=== PATIENT | female | born 1985 | race Caucasian/White ===

== ENCOUNTER 2023-05-08 11:27 | Observation (INO) ==
[2023-05-08 12:12] LABS: Basophils # (auto) 0.04 K/uL (0.00-0.20); Eosinophils # (auto) 0.37 K/uL (0.00-0.50); Eosinophils % (auto) 8.9 %; Hemoglobin 12.3 g/dl (12.0-16.0); Immature Granulocytes # (auto) 0.02 K/uL (0.01-0.20); Immature Granulocytes % (auto) 0.5 %; Lymphocytes # (auto) 0.95 K/uL (1.20-3.40); Lymphocytes % (auto) 22.8 %; Mean Corpuscular Hemoglobin 23.1 pg (25.0-34.0); Mean Corpuscular Hgb Conc 30.8 g/dL (32.0-36.0); Mean Corpuscular Volume 75.2 fL (80.0-100.0); Mean Platelet Volume 10.1 fL (9.4-12.4); Monocytes # (auto) 0.31 K/uL (0.11-0.59); Monocytes % (auto) 7.4 %; Neutrophils # (auto) 2.48 K/uL (1.40-6.50); Neutrophils % (auto) 59.4 %; Platelet Count 237 K/uL (130-400); RDW Coefficient of Variation 14.6 % (11.5-14.5); RDW Standard Deviation 39.6 fL (36.4-46.3); Red Blood Count 5.32 M/uL (4.20-5.40); White Blood Count 4.17 K/ul (4.8-10.8)
--- NOTE | 2023-05-08 12:21 | XRay Report ---
XR chest 1V not portable CLINICAL HISTORY: Chest pain, nonspecific TECHNIQUE: Single frontal radiograph of the chest was obtained. Comparison: None available at the time of this dictation. FINDINGS: No lines and tubes are seen. Prominence of the right superior hilum is seen at the level of the right paratracheal stripe. The lungs are clear. No evidence of pleural effusion or pneumothorax. IMPRESSION: Prominence of the right superior hilum is nonspecific. If not previously evaluated, CT is recommended to exclude underlying mass. ACT 112: Positive. There are findings on this exam that require communication between the performing entity and the patient following Patient Test Result Information Act ([place] Act 112) guidelines. Electronically signed by: Kenyon Chen M.D. 05/08/2023 12:20 PM
[2023-05-08 12:26] LABS: Albumin Globulin Ratio 1.2 (0.9-2); Albumin Level 4.2 gm/dl (3.4-5.0); Bilirubin,Total 0.5 mg/dl (0.2-1.0); Calcium 12.3 mg/dl (8.6-10.3); Creatinine Clr Calc Pharmacy 56.2 ml/min; Est GFR (African American) 45.5 ml/min; Est GFR (Non-African American) 39.3 ml/min; Globulin 3.5 gm/dl (2.5-4.0); Potassium 3.8 mmol/L (3.5-5.1); Total Protein 7.7 gm/dl (6.0-8.3)
[2023-05-08 12:29] LABS: Troponin I High Sensitivity 5.2 pg/ml (0-14)
[2023-05-08 12:36] LABS: Partial Thromboplastin Ratio 1.1; Partial Thromboplastin Time 31 Seconds (21-31); Prothrombin Time 11.4 Seconds (9.0-12.0)
[2023-05-08] MEDS ORDERED: CEFEPIME 2,000 MG/20 ML VIAL IV STA (12:38)
--- NOTE | 2023-05-08 12:51 | Emergency Department Note ---
Impression & Plan SOB (shortness of breath), Hilar adenopathy, Pedal edema, Cellulitis, Hypercalcemia ED Provider Note NAME: EARL ARAUJO AGE: 38 SEX: F : 1985 ARRIVES VIA: Walk-In INFORMANT: [Patient] ED PROVIDER(S): [Keith Oliver MD] CHIEF COMPLAINT: Short of breath, leg edema HISTORY OF PRESENT ILLNESS: The patient is a 38-year-old female who has had shortness of breath increasing for the last several months. She feels most short of breath when she sits down or leans back or lays flat. She has noticed increasing edema for a few days of her lower extremities. There has been no fever, there has been some erythema noticed to the right lower extremity. There is an open spot across the dorsum of the right foot from her sandals rubbing. There has been no fever, no increased cough. The patient does have COPD and a fatty liver. She has no history of previous fluid overload. She is not on a diuretic PMHx/PSHx/Social Hx: See Below PHYSICAL EXAM: GENERAL: Patient is in no acute distress. HEENT: No acute trauma, normocephalic atraumatic, mucous membranes moist, no nasal congestion. NECK: No stridor, no adenopathy, no meningismus, trachea is midline. LUNGS: A few scattered crackles heard bilaterally, no respiratory distress, no wheezing. HEART: Without murmurs gallops or rubs, regular rate and rhythm. ABDOMEN: Soft, nontender, no peritonitis. EXTREMITIES: No cyanosis, full range of motion of all the joints without pain or difficulty. Patient has mild to moderate bilateral pedal edema with some erythema and warmth to the right lower extremity involving the ankle and distal leg. There is a bandage over the dorsal midfoot NEUROLOGIC: Oriented x 3, no acute motor or sensory deficits, no focal weakness. SKIN: No jaundice, no diaphoresis. DIFFERENTIAL DIAGNOSIS: Fluid overload, CHF, electrolyte imbalance, anemia, pneumonia or bronchitis, DVT or PE, cellulitis, among others. EMERGENCY DEPARTMENT PROCEDURES: MEDICAL DECISION MAKING: There is no leukocytosis or concerning anemia. There is a normal platelet count. No coagulopathy. There is evidence for some acute kidney injury with a creatinine of 1.63. Calcium is critically high at 12.3. Lactic acid level is not elevated making severe sepsis less likely. No concerning liver enzyme elevation. BNP is at not elevated making CHF unlikely. ECG shows a normal sinus rhythm, no ischemia. Cardiac enzyme testing x 1 is not consistent with acute cardiac injury. Patient appeared to be in a euthyroid state. Chest x-ray shows some potential mild CHF and some hilar adenopathy. No focal infiltrate. Chest CT does not show PE, hilar adenopathy was seen. Bilateral lower extremity ultrasound does not show findings of DVT. Respiratory bio fire was negative. On exam, the patient had pedal edema. She did have findings of a right lower extremity cellulitis. The patient received IV cefepime as antibiotic coverage. She was given a 20 mg dose of IV Lasix to help with the edema. The patient presents with shortness of breath. The shortness of breath has worsened over the last few months. She now has pedal edema and what appears to be a right lower extremity cellulitis. She has findings of some acute kidney injury and hypercalcemia. Hospitalization is indicated. I spoke with the patient and case management, the on-call hospitalist was consulted. Prior/Outside records/notes reviewed: ECG per my interpretation: Indication was shortness of breath. The ECG shows a normal sinus rhythm with a rate of 78. There is some nonspecific ST changes diffusely. There is no ST elevation, no PVCs. The QTc is 442. Continuous Cardiac Monitoring per my interpretation: An order was placed for continuous cardiac monitoring. The monitor shows a rate of 74 with normal sinus rhythm. Imaging/x-ray results per my interpretation: Chest x-ray shows some fullness of the right hilum. There appears to be some very mild CHF, no pneumonia. Chronic Medical/Social conditions affecting care: COPD. Care/Management discussed with: Case management, the on-call hospitalist. Level of care consideration(s): After review of the information above and other included data: --I believe the patient requires escalation of care to admission DISPOSITION: Admission with pulmonary consult. Past Med/Surg History Medical History Hypothyroidism Social History Smoking Status: Former smoker Feels Safe at Home: Yes Allergies Allergies Allergy/AdvReac Type Severity Reaction Status Date / Time morphine Allergy Unknown SEVERE Unverified 05/08/23 16:18 MIGRANES & VOMITING escitalopram [From Lexapro] Allergy severe Verified 05/08/23 16:19 migraine and vomiting Home Meds Home Medications Medication Instructions Recorded Confirmed adalimumab 40 mg/0.4 mL 40 mg subcut .EVERY 2 WEEKS 05/08/23 05/08/23 subcutaneous pen kit (Humira(CF) Pen) buprenorphine 100 mg/0.5 mL 100 mg subcut MONTHLY 05/08/23 05/08/23 solution,exten.rel.subcutaneous syringe (Sublocade) bupropion HCl 75 mg tablet 75 mg PO QAM 05/08/23 05/08/23 cholecalciferol (vitamin D3) 50 4,000 unit PO QAM 05/08/23 05/08/23 mcg (2,000 unit) capsule famotidine 40 mg tablet 40 mg PO QAM 05/08/23 05/08/23 fluoxetine 20 mg capsule 20 mg PO QAM 05/08/23 05/08/23 fluticasone fur. 100 mcg-umeclid 1 ea inhalation QAM 05/08/23 05/08/23 62.5 mcg-vilant 25 mcg inhalat.powder (Trelegy Ellipta) gabapentin 600 mg tablet 600 mg PO TID 05/08/23 05/08/23 hydroxyzine HCl 50 mg tablet See Rx Instructions .Route .COMPLEX 05/08/23 05/08/23 lactulose 10 gram/15 mL oral 30 ml PO Q OTHER DAY 05/08/23 05/08/23 solution montelukast 10 mg tablet 10 mg PO HS 05/08/23 05/08/23 paliperidone palmitate 234 mg/1.5 234 mg IM MONTHLY 05/08/23 05/08/23 mL intramuscular syringe (Invega Sustenna) rizatriptan 10 mg tablet 10 mg PO UD 05/08/23 05/08/23 Results & Data (ED) Vital Signs Vital Signs - 24 hr 05/08/23 11:35 05/08/23 12:20 05/08/23 13:08 Temperature 37 C Temperature Source Temporal Artery Scan Pulse Rate 78 68 Pulse Rate [Apical] Respiratory Rate 20 Respiratory Effort / Characteristics Non-Labored Spontaneous Respiratory Depth Normal Respiratory Pattern Regular Blood Pressure 136/79 Blood Pressure [Right Arm] Blood Pressure Mean 98 Blood Pressure Mean [Right Arm] Blood Pressure Position [Right Arm] Pulse Oximetry 94 Oxygen Delivery Method Room Air Room Air Sepsis Recent Fever Within 48 Hours No Sepsis New/Unexplained Change in Mental Status No Sepsis Action Taken by Nursing No Action Required 05/08/23 13:34 05/08/23 15:53 05/08/23 16:16 Temperature Temperature Source Pulse Rate Pulse Rate [Apical] 72 67 66 Respiratory Rate 21 16 17 Respiratory Effort / Characteristics Non-Labored Spontaneous Respiratory Depth Normal Normal Respiratory Pattern Regular Blood Pressure Blood Pressure [Right Arm] 160/83 H 117/81 127/87 Blood Pressure Mean Blood Pressure Mean [Right Arm] 108 93 100 Blood Pressure Position [Right Arm] Sitting Lying Pulse Oximetry 98 94 97 Oxygen Delivery Method Room Air Room Air Room Air Sepsis Recent Fever Within 48 Hours Sepsis New/Unexplained Change in Mental Status Sepsis Action Taken by [facility] Medications Current Medication List: was personally reviewed by me Laboratory Data Attestation: I reviewed the patient's lab results. 05/08/23 11:38 05/08/23 11:38 Lab Results 05/08/23 05/08/23 Range/Units 11:38 12:50 WBC 4.17 L (4.8-10.8) K/ul RBC 5.32 (4.20-5.40) M/uL Hgb 12.3 (12.0-16.0) g/dl Hct 40.0 (37.0-47.0) % MCV 75.2 L (80.0-100.0) fL MCH 23.1 L (25.0-34.0) pg MCHC 30.8 L (32.0-36.0) g/dL RDW Std Deviation 39.6 (36.4-46.3) fL RDW Coeff of Shelley 14.6 H (11.5-14.5) % Plt Count 237 (130-400) K/uL MPV 10.1 (9.4-12.4) fL Immature Gran % (Auto) 0.5 % Neut % (Auto) 59.4 % Lymph % (Auto) 22.8 % Bremer % (Auto) 7.4 % Eos % (Auto) 8.9 % Baso % (Auto) 1.0 % Neut # (Auto) 2.48 (1.40-6.50) K/uL Lymph # (Auto) 0.95 L (1.20-3.40) K/uL Bremer # (Auto) 0.31 (0.11-0.59) K/uL Eos # (Auto) 0.37 (0.00-0.50) K/uL Baso # (Auto) 0.04 (0.00-0.20) K/uL Immature Gran # (Auto) 0.02 (0.01-0.20) K/uL PT 11.4 (9.0-12.0) Seconds INR 1.0 (0.9-1.1) APTT 31 (21-31) Seconds PTT Ratio 1.1 Sodium 135 L (136-145) mmol/L Potassium 3.8 (3.5-5.1) mmol/L Chloride 101 (98-107) mmol/L Carbon Dioxide 27 (21-32) mmol/L Anion Gap 7 (3-11) BUN 18 (6-23) mg/dl Creatinine 1.63 H (0.6-1.2) mg/dl Est Cr Clr Drug Dosing 56.2 ml/min Est GFR ( Amer) 45.5 ml/min Est GFR (Non-Af Amer) 39.3 ml/min BUN/Creatinine Ratio 11.0 (10-20) Glucose 108 H (70-99(Fasting)) mg/dl Lactate 1.5 (0.4-2.0) mmol/L Calcium 12.3 H* (8.6-10.3) mg/dl Magnesium 2.1 (1.7-2.4) mg/dl Total Bilirubin 0.5 (0.2-1.0) mg/dl AST 31 (13-39) U/L ALT 30 (7-52) U/L Alkaline Phosphatase 155 H (34-104) U/L Troponin I High Sens 5.2 (0-14) pg/ml B-Natriuretic Peptide 55 (0-100) pg/ml Total Protein 7.7 (6.0-8.3) gm/dl Albumin 4.2 (3.4-5.0) gm/dl Globulin 3.5 (2.5-4.0) gm/dl Albumin/Globulin Ratio 1.2 (0.9-2) TSH 2.683 (0.300-4.500) uIu/ml SARS-CoV-2 (PCR) NEGATIVE (Negative) Influenza Type A (PCR) Negative (Neg) Influenza Type B (PCR) Negative (Neg) RSV (RT-PCR) Negative (Neg) Administered Medications Discontinued Medications Furosemide (Furosemide Inj 20 Mg/2 Ml Vial) 20 mg IV ONE ONE Stop: 05/08/23 16:06 Last Admin: 05/08/23 16:15 Dose: 20 mg Documented By: EULALIO Cefepime HCl (Maxipime) 2,000 mg in 20 mls @ 5 mls/min IV NOW STA; Protocol Stop: 05/08/23 12:41 Last Admin: 05/08/23 13:31 Dose: 5 mls/min Documented By: KEITH Ioversol (Optiray 320 125ml) 115 ml IV ONCE ONE Stop: 05/08/23 13:32 Last Admin: 05/08/23 13:31 Dose: 115 ml Documented By: DO Imaging Data Radiologist's Impression: Chest X-Ray 05/08/23 11:37 XR chest 1V not portable CLINICAL HISTORY: Chest pain, nonspecific TECHNIQUE: Single frontal radiograph of the chest was obtained. Comparison: None available at the time of this dictation. FINDINGS: No lines and tubes are seen. Prominence of the right superior hilum is seen at the level of the right paratracheal stripe. The lungs are clear. No evidence of pleural effusion or pneumothorax. IMPRESSION: Prominence of the right superior hilum is nonspecific. If not previously evaluated, CT is recommended to exclude underlying mass. ACT 112: Positive. There are findings on this exam that require communication between the performing entity and the patient following Patient Test Result Information Act ([place] Act 112) guidelines. Electronically signed by: Kenyon Chen M.D. 05/08/2023 12:20 PM Chest CTA 05/08/23 12:31 CT angio chest PE protocol CLINICAL HISTORY: PE, please also eval ? right hilar mass TECHNIQUE: Multidetector row helical CT of the chest was performed with angiographic protocol. Coronal and sagittal reformations were obtained. Coronal and sagittal MIPS were obtained from the axial data set and were submitted for review. Automated dose lowering techniques and/or adjustment according to patient size were utilized for this exam. CT DOSE: 890.56 mGy.cm Comparison: Comparison is made to chest radiograph 05/08/2023 FINDINGS: Lungs and pleura: Extensive nodularity is seen throughout the lungs and there is atelectasis and peripheral thickening in the lower lungs. Heart and pericardium: Heart size is normal. No pericardial effusion. Vessels: No evidence of pulmonary embolism. Mediastinum and elizabeth: Enlarged mediastinal lymph nodes measure up to 31 mm in the right lower paratracheal station. Bilateral hilar lymph nodes are seen. Chest wall and lower neck: Unremarkable. Abdomen: Prominent elpidio hepatis lymph nodes measure up to 18 mm in diameter and there are prominent gastrohepatic and retroperitoneal nodes are seen. Bones: Mild degenerative changes are seen. IMPRESSION: No evidence of pulmonary embolus. Extensive pulmonary nodularity may reflect infectious/inflammatory process. There is extensive mediastinal and hilar lymphadenopathy, likely reactive, explaining the abnormal contour on prior chest x-ray. Follow-up to resolution is recommended. ACT 112: Negative or not required by law. Electronically signed by: Kenyon Chen M.D. 05/08/2023 2:03 PM Venous Doppler Study 05/08/23 12:38 US venous doppler LE BI CLINICAL HISTORY: swelling TECHNIQUE: Bilateral lower extremity real-time compression venous ultrasound with Color Doppler imaging. Utilizing real-time ultrasonic imaging multiple real time high-resolution ultrasonic images with compression and noncompression maneuvers of the deep venous system in addition to color doppler imaging were performed from the common femoral vein through the proximal calf veins. COMPARISON: None available at the time of this dictation. FINDINGS/IMPRESSION: Currently there is normal compressibility of the deep venous system from the common femoral vein through the proximal calf veins. No superficial venous thrombosis is identified. ACT 112: Negative or not required by law. Electronically signed by: Kenyon Chen M.D. 05/08/2023 3:45 PM Discharge Plan Visit Data Chief Complaint: Swelling/Edema to Extremity Stated Complaint: LEG SWELLING, CHEST PAIN, SOB ED Provider: Keith Oliver Discharge Problem: SOB (shortness of breath), Hilar adenopathy, Pedal edema, Cellulitis, Hypercalcemia Patient Disposition: Admitted As Inpatient Condition: Fair Forms Stand Alone Forms: [facility] Prescriptions Prescriptions: No Action famotidine 40 mg tablet 40 mg PO QAM Trelegy Ellipta 100-62.5-25 mcg blister with device 1 ea INHALATION QAM gabapentin 600 mg tablet 600 mg PO TID Sublocade 100 mg/0.5 mL solution, extended rel syringe 100 mg SUBCUT MONTHLY Invega Sustenna 234 mg/1.5 mL syringe 234 mg IM MONTHLY rizatriptan 10 mg tablet 10 mg PO UD Rx Instructions: 1 tab 1 time may repeat after 2 hours if headache persists...max of 3 tab/day as needed bupropion HCl 75 mg tablet 75 mg PO QAM fluoxetine 20 mg capsule 20 mg PO QAM lactulose 10 gram/15 mL solution 30 ml PO Q OTHER DAY hydroxyzine HCl 50 mg tablet See Rx Instructions .ROUTE .COMPLEX Rx Instructions: take 1 tablet by mouth every morning and 1.5 tablets twice daily in the afternoon Humira(CF) Pen 40 mg/0.4 mL pen injector kit 40 mg SUBCUT .EVERY 2 WEEKS montelukast 10 mg tablet 10 mg PO HS cholecalciferol (vitamin D3) 50 mcg (2,000 unit) capsule 4,000 unit PO QAM Referrals Referrals: Tao Rae [Primary Care Provider] - Discharge Problem: Cellulitis Qualifiers: Site of cellulitis: extremity Site of cellulitis of extremity: lower extremity Laterality: right Qualified Code(s): L03.115 - Cellulitis of right lower limb
[2023-05-08 12:53] LABS: Magnesium 2.1 mg/dl (1.7-2.4)
[2023-05-08 12:55] LABS: Influenza A virus by PCR Negative (Neg); Influenza B virus by PCR Negative (Neg); RSV by PCR Negative (Neg); SARS CoV2 RNA(COVID-19) Ceph NEGATIVE (Negative)
[2023-05-08 13:11] LABS: Thyroid Stimulating Hormone 2.683 uIu/ml (0.300-4.500)
[2023-05-08] MEDS ORDERED: OPTIRAY 320 125ml IV ONE (13:31)
--- NOTE | 2023-05-08 14:04 | CT Scan Report ---
CT angio chest PE protocol CLINICAL HISTORY: PE, please also eval ? right hilar mass TECHNIQUE: Multidetector row helical CT of the chest was performed with angiographic protocol. Carranza l and sagittal reformations were obtained. Coronal and sagittal MIPS were obtained from the axial ras a set and were submitted for review. Automated dose lowering techniques and/or adjustment according to patient size were utilized for this exam. CT DOSE: 890.56 mGy.cm Comparison: Comparison is made to chest radiograph 05/08/2023 FINDINGS: Lungs and pleura: Extensive nodularity is seen throughout the lungs and there is atelectasis and tata pheral thickening in the lower lungs. Heart and pericardium: Heart size is normal. No pericardial effusion. Vessels: No evidence of pulmonary embolism. Mediastinum and elizabeth: Enlarged mediastinal lymph nodes measure up to 31 mm in the right lower paratra cheal station. Bilateral hilar lymph nodes are seen. Chest wall and lower neck: Unremarkable. Abdomen: Prominent elpidio hepatis lymph nodes measure up to 18 mm in diameter and there are prominent gastrohepatic and retroperitoneal nodes are seen. Bones: Mild degenerative changes are seen. IMPRESSION: No evidence of pulmonary embolus. Extensive pulmonary nodularity may reflect infectious/inflammatory process. There is extensive mediastinal and hilar lymphadenopathy, likely reactive, explaining the ab normal contour on prior chest x-ray. Follow-up to resolution is recommended. ACT 112: Negative or not required by law. Electronically signed by: Kenyon Chen M.D. 05/08/2023 2:03 PM
--- NOTE | 2023-05-08 15:47 | Ultrasound Report ---
US venous doppler LE BI CLINICAL HISTORY: swelling TECHNIQUE: Bilateral lower extremity real-time compression venous ultrasound with Color Doppler imagi ng. Utilizing real-time ultrasonic imaging multiple real time high-resolution ultrasonic images with compression and noncompression maneuvers of the deep venous system in addition to color doppler imagi ng were performed from the common femoral vein through the proximal calf veins. COMPARISON: None available at the time of this dictation. FINDINGS/IMPRESSION: Currently there is normal compressibility of the deep venous system from the common femoral vein thro ugh the proximal calf veins. No superficial venous thrombosis is identified. ACT 112: Negative or not required by law. Electronically signed by: Kenyon Chen M.D. 05/08/2023 3:45 PM
[2023-05-08] MEDS ORDERED: FUROSEMIDE INJ 20 MG/2 ML VIAL IV ONE (16:05)
--- OUTSIDE RECORDS SUMMARY | 2023-05-08 16:33 | External Medical Summary | Summary of Care ---
Author Name Unknown Organization [facility] Address [address] [place] [address] Phone [phone] Care Team Providers Care Level Vial Grinder Name Role Phone Mendel Fortune MD Primary Care Provider [phone] Encounter Details Date Type Department Care Team Description 11/20/2022 Orders Only Outcomes Research Department [address] [place] [address] Zainab Jc [facility] Other*[id number] Allergies Active Allergy Reactions Severity Noted Date Comments Morphine High 03/08/2016 Vomiting, migraines documented as of this encounter (statuses as of 11/20/2022) Medications Medication Sig Dispensed Refills Start Date End Date Status VITAMIN D3 1000 UNITS PO CAPS One daily 0 Active MONTELUKAST SODIUM 10 MG PO TABS One daily 0 Active MULTI-VITAMIN DAILY PO TABS one pill each day 0 Active ALBUTEROL SULFATE HFA 108 (90 BASE) MCG/ACT IN AERS as directed 0 Active KLONOPIN 1 MG PO TABS one tablet three times daily 0 Active VITAMIN C 100 MG PO TABS one tablet daily 0 Active IRON 325 (65 FE) MG PO TABS one tablet daily 0 Active atoMOXetine (STRATTERA) 60 MG Capsule Take 60 mg by mouth daily. 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 documented as of this encounter (statuses as of 11/20/2022) Social History Tobacco Use Types Packs/Day Years Used Date Smoking Tobacco: Every Day Cigarettes 0.3 Smokeless Tobacco: Never Alcohol Use Standard Drinks/Week Comments No 0 (1 standard drink = 0.6 oz pur e alcohol) 01/26/14 no ETOH >1 year Sex Assigned at Date Recorded Not on file documented as of this encounter Plan of Treatment Scheduled Orders Name Type Priority Associated Diagnoses Orde r Schedule MYCODE INITIAL ADULT Lab Routine MyCode Research Other*[id number] Expected: 11/20/2022 (Approximate), Expires: 12/10/2023 Health Maintenance Due Date Last Done Comments Hepatitis B (1 of 3 - 3-dose series) 1985 COVID-19 Vaccine (#1) 1985 Pneumococcal Vaccine: Pediat rics (0 to 5 Years) and At-Risk Patients (6 to 64 Years) (1 - PCV) 1990 Depression Screening, Annual for Pts 12 and Over 1996 HIV Screening 1999 Hepatitis C Screening 2002 DTaP,Tdap,and Td Vaccines (1 - Tdap) 2003 Pap Smear 2014 Influenza Vaccine (FLU shot) (Season Ended) 2023 GARDASIL-HPV IMMUNIZATION SERIES Aged Out No longer eligible based on patient's age to complete this topic MENINGOCOCCAL (MENACTRA/MENVEO) Aged Out No longer eligible based on patient's age to complete this topic documented as of this encounter Medical Devices Not on filedocumented as of this encounter Visit Diagnoses Diagnosis MyCode Research Other*[id number] documented in this encounter Care Teams Level Vial Grinder Relationship Specialty Start Date End Date Mendel Fortune MD PCP - General Internal Medicine 03/08/16 documented as of this encounter
[2023-05-08 16:59] LABS: C Reactive Protein 2.24 mg/dl (0-0.5); Phosphorus 3.4 mg/dl (2.5-4.9)
[2023-05-08 17:07] LABS: Ferritin 33.5 ng/ml (8-388)
--- NOTE | 2023-05-08 18:41 | History & Physical Report ---
Date of Service May 08, 2023 Assessment & Plan (1) Hypercalcemia: Plan: Suspected due to sarcoidosis. Treatment will be effectively steroids however given she is relatively asymptomatic with a mildly elevated ionized calcium steroids deferred on admission prior to obtaining tissue biopsy. Lasix given for pedal edema which may mildly help overnight. Suspect that this is affecting her constipation and possibly her underlying psychiatric illnesses. No paresthesias. Repeat ionized calcium level in a.m. (2) Sarcoidosis: Plan: Presumed diagnosis with hilar adenopathy, hypercalcemia and shortness of breath Gold standard test would be a tissue diagnosis as discussed with Dr Luz and will keep her NPO after midnight for possible bronchoscopy tomorrow N.p.o. after midnight Consult pulmonology (3) Pedal edema: Plan: ?Right-sided heart failure due to sarcoidosis ?Venous stasis Appears to already be improving with of Lasix and leg elevation Continue Lasix 20 mg IV daily TTE (4) Schizoaffective disorder: Plan: On Invega monthly injections - next dose due May 25 (5) Bipolar disorder: Plan: Continue bupropion, gabapentin, fluoxetine, Invega Plan VTE Prophylaxis - low risk Diet - low Na, NPO after midnight Disposition - admit to med/tele Admission and Anticipated Discharge Date Admission Date: May 08, 2023 History of Present Illness Chief Complaint: Shortness of breath, leg swelling Primary Care Provider: Tao Rae Arely Landin is a 38-year-old female who presents to the ER with shortness of breath and leg swelling. She reports progressive shortness of breath especially over the last 6 months for which she has been seeing pulmonology in [place]. She has had a diagnosis of COPD for the last 2 to 3 years diagnosed on lung function testing. She has had no hospitalizations for this. She notes that her inhalers are not helping with her shortness of breath. She also notes intermittent pounding of her heart's where she feels her heart goes slowly. The last time this happened was about a week ago. She notes 2 days of leg swelling. Associated symptoms significant for orthopnea, paroxysmal nocturnal dyspnea. No presyncope, syncope, claudication, palpitations. She denies any fevers, chills, cough, sinus pain, earache. She has a significant history of ankylosing spondylitis for which she is receiving Humira. She receives Humira every 2 weeks but notes her last dose was about a month ago due to difficulty obtaining it from the pharmacy. She has a significant history of opiate abuse from the age [age]. No prior IV drug use. She remains on monthly injections of buprenorphine (Sublocade). Allergies Allergy/AdvReac Type Severity Reaction Status Date / Time morphine Allergy Unknown SEVERE Unverified 05/08/23 16:18 MIGRANES & VOMITING escitalopram [From Lexapro] Allergy severe Verified 05/08/23 16:19 migraine and vomiting Home Medications Medication Instructions Recorded Confirmed Type adalimumab 40 mg/0.4 mL 40 mg subcut .EVERY 2 WEEKS 05/08/23 05/08/23 History subcutaneous pen kit (Humira(CF) Pen) buprenorphine 100 mg/0.5 mL 100 mg subcut MONTHLY 05/08/23 05/08/23 History solution,exten.rel.subcutaneous syringe (Sublocade) bupropion HCl 75 mg tablet 75 mg PO QAM 05/08/23 05/08/23 History cholecalciferol (vitamin D3) 50 4,000 unit PO QAM 05/08/23 05/08/23 History mcg (2,000 unit) capsule famotidine 40 mg tablet 40 mg PO QAM 05/08/23 05/08/23 History fluoxetine 20 mg capsule 20 mg PO QAM 05/08/23 05/08/23 History fluticasone fur. 100 mcg-umeclid 1 ea inhalation QAM 05/08/23 05/08/23 History 62.5 mcg-vilant 25 mcg inhalat.powder (Trelegy Ellipta) gabapentin 600 mg tablet 600 mg PO TID 05/08/23 05/08/23 History hydroxyzine HCl 50 mg tablet See Rx Instructions .Route .COMPLEX 05/08/23 05/08/23 History lactulose 10 gram/15 mL oral 30 ml PO Q OTHER DAY 05/08/23 05/08/23 History solution montelukast 10 mg tablet 10 mg PO HS 05/08/23 05/08/23 History paliperidone palmitate 234 mg/1.5 234 mg IM MONTHLY 05/08/23 05/08/23 History mL intramuscular syringe (Invega Sustenna) rizatriptan 10 mg tablet 10 mg PO UD 05/08/23 05/08/23 History Past Med/Surg History Medical History (Updated 05/08/23 @ 22:34 by Oskar Guillaume MD) Bipolar disorder Schizoaffective disorder Hypothyroidism Social History Smoking Status: Former smoker Tobacco Type: Cigarettes and E-cigarettes / Vaping Cigarettes Per Day: smoked for years but quit, vaped for years but quit 2-3 years ago; Do You Dip or Chew Tobacco: No; Hx Alcohol Use: No 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, Sublocade now) Preferred Language: Gambian Communication Ability: Effective Tobacco Sweeper Required: No Beliefs That Will Affect Care: None Current Living Situation: Other Current Living Situation Comment: lives with 3 kids age 12-20 Other Information That Helps Us Care for You: Yes (Mom helps pt and drives her to appointments) Feels Safe at Home: Yes Safety Concerns: Feels Safe At This Time Assistive Devices: CPAP and Denture - Upper Review of Systems 2 Review of Systems: All systems reviewed & are unremarkable except as noted in HPI & below Physical Exam 2 Physical Exam: Constitutional: well developed; + not well nourished and no acute distress Eyes: + anicteric sclerae; normal pupil size ENMT: external ear and nose normal, oropharynx normal Respiratory: normal respiratory effort, lungs clear to auscultation Cardiovascular: RRR, no murmur, no edema Gastrointestinal (Abdomen): normal bowel sounds, soft, nontender, no hepatosplenomegaly Skin: + erythema (mild diffuse rash on bilater al legs already significantly improved as above) Neurologic: moves all extremities and awake; not confused Psychiatric: A+Ox3, euthymic affect Results & Data Results & Data Vital Signs (Past 12 Hours) Vital Signs Temp Pulse Pulse Resp BP BP Pulse Ox 05/08/23 18:12 74 16 136/81 92 05/08/23 17:08 68 05/08/23 16:16 66 17 127/87 97 05/08/23 15:53 67 16 117/81 94 05/08/23 13:34 72 21 160/83 H 98 05/08/23 13:08 68 05/08/23 12:20 05/08/23 11:35 37 C 78 20 136/79 94 O2 Del Method 05/08/23 18:12 Room Air 05/08/23 17:08 05/08/23 16:16 Room Air 05/08/23 15:53 Room Air 05/08/23 13:34 Room Air 05/08/23 13:08 05/08/23 12:20 Room Air 05/08/23 11:35 Room Air Laboratory Results Abnormal lab results 05/08/23 05/08/23 Range/Units 11:38 17:03 WBC 4.17 L (4.8-10.8) K/ul MCV 75.2 L (80.0-100.0) fL MCH 23.1 L (25.0-34.0) pg MCHC 30.8 L (32.0-36.0) g/dL RDW Coeff of Shelley 14.6 H (11.5-14.5) % Lymph # (Auto) 0.95 L (1.20-3.40) K/uL ESR 58 H (0-20) mm/hr Sodium 135 L (136-145) mmol/L Creatinine 1.63 H (0.6-1.2) mg/dl Glucose 108 H (70-99(Fasting)) mg/dl Calcium 12.3 H* (8.6-10.3) mg/dl Ionized Calcium 1.57 H (1.12-1.32) mmol/L Transferrin % Sat 13 L (15-50) % Alkaline Phosphatase 155 H (34-104) U/L C-Reactive Protein 2.24 H (0-0.5) mg/dl 25-OH Vitamin D Total 23.4 L (30-100) ng/ml PTH Intact 2.2 L (12.0-88.0) pg/ml Diagnostic Findings XR chest 1V not portable CLINICAL HISTORY: Chest pain, nonspecific TECHNIQUE: Single frontal radiograph of the chest was obtained. Comparison: None available at the time of this dictation. FINDINGS: No lines and tubes are seen. Prominence of the right superior hilum is seen at the level of the right paratracheal stripe. The lungs are clear. No evidence of pleural effusion or pneumothorax. IMPRESSION: Prominence of the right superior hilum is nonspecific. If not previously evaluated, CT is recommended to exclude underlying mass. CT angio chest PE protocol CLINICAL HISTORY: PE, please also eval ? right hilar mass TECHNIQUE: Multidetector row helical CT of the chest was performed with angiographic protocol. Coronal and sagittal reformations were obtained. Coronal and sagittal MIPS were obtained from the axial data set and were submitted for review. Automated dose lowering techniques and/or adjustment according to patient size were utilized for this exam. CT DOSE: 890.56 mGy.cm Comparison: Comparison is made to chest radiograph 05/08/2023 FINDINGS: Lungs and pleura: Extensive nodularity is seen throughout the lungs and there is atelectasis and peripheral thickening in the lower lungs. Heart and pericardium: Heart size is normal. No pericardial effusion. Vessels: No evidence of pulmonary embolism. Mediastinum and elizabeth: Enlarged mediastinal lymph nodes measure up to 31 mm in the right lower paratracheal station. Bilateral hilar lymph nodes are seen. Chest wall and lower neck: Unremarkable. Abdomen: Prominent elpidio hepatis lymph nodes measure up to 18 mm in diameter and there are prominent gastrohepatic and retroperitoneal nodes are seen. Bones: Mild degenerative changes are seen. IMPRESSION: No evidence of pulmonary embolus. Extensive pulmonary nodularity may reflect infectious/inflammatory process. There is extensive mediastinal and hilar lymphadenopathy, likely reactive, explaining the abnormal contour on prior chest x-ray. Follow-up to resolution is recommended. US venous doppler LE BI CLINICAL HISTORY: swelling TECHNIQUE: Bilateral lower extremity real-time compression venous ultrasound with Color Doppler imaging. Utilizing real-time ultrasonic imaging multiple real time high-resolution ultrasonic images with compression and noncompression maneuvers of the deep venous system in addition to color doppler imaging were performed from the common femoral vein through the proximal calf veins. COMPARISON: None available at the time of this dictation. FINDINGS/IMPRESSION: Currently there is normal compressibility of the deep venous system from the common femoral vein through the proximal calf veins. No superficial venous thrombosis is identified. Medications Administered ER Medications Given: Cefepime 2000mg IV Furosemide 20mg IV ECG Rate (beats per minute): 78 Rhythm: normal sinus Findings: + nonspecific-ST abn Comparison ECG Date: no prior available Code Status & VTE Plan Code Status Full VTE Prophylaxis Plan VTE Prophylaxis will be ordered: No PG Care Time/CCT Total # of Minutes Spent Total Time Spent with Patient: Total time spent is greater than 50% in coordination of care (as documented) at patient's floor/unit and/or counseling patient: Coding Level of Care Code 72540 INT INP/OBS CARE 3/75MIN Diagnoses Hypercalcemia E83.52 Sarcoidosis D86.9 Pedal edema R60.0 Schizoaffective disorder F25.9 Bipolar disorder F31.9
[2023-05-08] MEDS: GABAPENTIN 600 MG TAB PO SCH (22:37)
[2023-05-08] MEDS: MONTELUKAST SODIUM 10 MG TABLET PO SCH (22:38)
[2023-05-08 22:59] LABS: Appearance Urine Clear (Clear); Bacteria Urine Automated Negative (Negative); Bilirubin Urine Negative (Negative); Blood Urine Negative (Negative); Color Urine Yellow; Epithelial Cell Urine Auto >30 /lpf (0-5); Glucose Urine UA Negative (Negative); Ketones Urine Trace (Negative); Leukocyte Esterase Urine 1+ (Negative); Nitrite Urine Negative (Negative); Protein Urine 1+ (Negative); Specific Gravity Urine > 1.045 (1.000-1.030); Urobilinogen Urine Negative (Negative); WBC Urine Automated >30 /hpf (0-5)
[2023-05-08] MEDS ORDERED: IBUPROFEN 200 MG TAB PO STA (23:31)
--- NOTE | 2023-05-08 23:36 | Electrocardiogram Report ---
Test Reason : Blood Pressure : / mmHG Vent. Rate : 078 BPM Atrial Rate : 078 BPM P-R Int : 154 ms QRS Dur : 072 ms QT Int : 388 ms P-R-T Axes : 063 020 031 degrees QTc Int : 442 ms Normal sinus rhythm Nonspecific ST and T wave abnormality Abnormal ECG No previous ECGs available Confirmed by Sascha Rodriges ([id number]) on 05/08/2023 11:35:48 PM Referred By: REFERRED SELF Confirmed By:Sascha Rodriges
[2023-05-08] MEDS: hydrOXYzine HCl 25 MG TAB PO SCH (23:48)
[2023-05-09 00:29] LABS: Calcium Oxalate Crystals Urine Present (None Prsent)
[2023-05-09 00:30] LABS: Cast Urine Automated >30 /lpf (0-5); Renal Epithelial Cells Urine 0-5 /lpf (0-5)
[2023-05-09 00:49] LABS: Total Protein Urine Random 52.7 mg/dl (0-11.9)
[2023-05-09 00:54] LABS: Creatinine Urine Random 146.7 mg/dl; Protein Creatinine Ratio Urine 0.4 (0-0.2)
[2023-05-09] MEDS: hydrOXYzine HCl 25 MG TAB PO SCH ×3 (08:13→20:51)
--- NOTE | 2023-05-09 08:13 | Pulmonary Consultation ---
Date of Consultation May 09, 2023 Assessment & Plan (1) Hilar adenopathy: (2) SOB (shortness of breath): (3) Hypercalcemia: Plan The patient's constellation of symptoms including hypercalcemia, shortness of breath and abnormal CT chest are very concerning for systemic sarcoidosis. Patient is agreeable to pursuing an EBUS/bronchoscopy today. I went over the risks and benefits (including, but not limited to pulmonary hemorrhage, pneumothorax, respiratory failure, mediastinitis and failure to wean off the vent) with the patient and she agrees. I am also consulting nephrology to assist with management of her hypercalcemia which is likely mediated by sarcoidosis. We did go over other possible etiologies for hypercalcemia and lymphadenopathy on her CT chest including malignancy, lymphoma and other granulomatous disorders. If granulomas are seen on biopsy, would like to start the patient on prednisone therapy and taper over several weeks to see clinical response. Patient will need outpatient PFTs and follow-up imaging. She will also need likely follow-up with nephrology to evaluate for nephrocalcinosis and further monitor her hypercalcemia. EKG completed with normal sinus rhythm noted. No significant heart block seen or conduction delays. Echocardiogram results pending. History of Present Illness Reason for Consultation: Shortness of breath and an abnormal CT chest Attending Physician: Reilly Birch DO History of Present Illness 38-year-old female with reported past medical history of COPD, bipolar disorder, schizoaffective disorder, ankylosing spondylitis on Humira and prior opiate drug abuse. Patient notes that she has been following with pulmonary medicine at [facility] for the past 3 to 4 years. She is on Trelegy and as needed albuterol. She notes that she was a smoker since her teenage years and quit about 2 years ago. She also has a history of vaping. She notes lately she has been having some increased shortness of breath with occasional cough. She denies ever having a chest x-ray or CT scan of her chest. She is unaware of her diagnosis of sarcoidosis. She denies any prior history of biopsies or lung procedures. She is currently unemployed. She denies overt occupational exposure history. Initially she notes intermittent palpitations. She is also on Humira for history of ankylosing spondylitis. Chest CTA completed yesterday personally reviewed reveals bilateral hilar lymphadenopathy and enlarged mediastinal lymph nodes. There are also miliary pulmonary nodules noted bilaterally in a perilymphatic distribution. Findings and concerning for underlying sarcoidosis. I reviewed the radiology report and agree. Labs were also significant for an elevated ESR 58, lymphopenia of 950 and an elevated ionized calcium of 1.57. COVID-19 testing, RSV and flu testing on admission were negative. Allergies Allergy/AdvReac Type Severity Reaction Status Date / Time morphine Allergy Unknown SEVERE Unverified 05/08/23 16:18 MIGRANES & VOMITING escitalopram [From Lexapro] Allergy severe Verified 05/08/23 16:19 migraine and vomiting Home Medications Medication Instructions Recorded Confirmed Type adalimumab 40 mg/0.4 mL 40 mg subcut .EVERY 2 WEEKS 05/08/23 05/08/23 History subcutaneous pen kit (Humira(CF) Pen) buprenorphine 100 mg/0.5 mL 100 mg subcut MONTHLY 05/08/23 05/08/23 History solution,exten.rel.subcutaneous syringe (Sublocade) bupropion HCl 75 mg tablet 75 mg PO QAM 05/08/23 05/08/23 History cholecalciferol (vitamin D3) 50 4,000 unit PO QAM 05/08/23 05/08/23 History mcg (2,000 unit) capsule famotidine 40 mg tablet 40 mg PO QAM 05/08/23 05/08/23 History fluoxetine 20 mg capsule 20 mg PO QAM 05/08/23 05/08/23 History fluticasone fur. 100 mcg-umeclid 1 ea inhalation QAM 05/08/23 05/08/23 History 62.5 mcg-vilant 25 mcg inhalat.powder (Trelegy Ellipta) gabapentin 600 mg tablet 600 mg PO TID 05/08/23 05/08/23 History hydroxyzine HCl 50 mg tablet See Rx Instructions .Route .COMPLEX 05/08/23 05/08/23 History lactulose 10 gram/15 mL oral 30 ml PO Q OTHER DAY 05/08/23 05/08/23 History solution montelukast 10 mg tablet 10 mg PO HS 05/08/23 05/08/23 History paliperidone palmitate 234 mg/1.5 234 mg IM MONTHLY 05/08/23 05/08/23 History mL intramuscular syringe (Invega Sustenna) rizatriptan 10 mg tablet 10 mg PO UD 05/08/23 05/08/23 History Patient History Medical History (Updated 05/08/23 @ 22:34 by Oskar Guillaume MD) Bipolar disorder Schizoaffective disorder Hypothyroidism Social History Smoking Status: Former smoker Tobacco Type: Cigarettes and E-cigarettes / Vaping Cigarettes Per Day: smoked for years but quit, vaped for years but quit 2-3 years ago; Do You Dip or Chew Tobacco: No; Hx Alcohol Use: No 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, Sublocade now) Preferred Language: Ukrainian Communication Ability: Effective Pilot Captain Required: No Beliefs That Will Affect Care: None Current Living Situation: Other Current Living Situation Comment: lives with 3 kids age 12-20 Other Information That Helps Us Care for You: Yes (Mom helps pt and drives her to appointments) Feels Safe at Home: Yes Safety Concerns: Feels Safe At This Time Assistive Devices: CPAP and Denture - Upper Review of Systems Review of Systems: All systems reviewed & are unremarkable except as noted in HPI & below Physical Exam Physical Exam: Constitutional: Patient appears to be of their stated age. Patient is in no apparent distress. Obese. Eyes: Pupils are equal round and reactive to light. Conjunctivae are normal. Anicteric sclera. Ears nose, mouth and throat: Mallampati class 3. Normal posterior oropharynx. Uvula is midline. Neck: Trachea is midline. Visual inspection is normal. Respiratory: Clear to auscultation bilaterally. No use of accessory muscles. No significant clubbing noted. Cardiovascular: Regular rate and rhythm. No murmurs. No edema. Gastrointestinal: Normal bowel sounds, soft, nontender and nondistended. No hepatosplenomegaly noted. Musculoskeletal: No cyanosis. Patient is able to move all extremities. Strength is 5 out of 5 in the upper and lower extremities. Skin: No rashes, warm dry and intact. Neurologic: No obvious focal neurological deficits seen. Psychiatric: Alert and oriented x3 with a flat affect. Results & Data Results & Data Vital Signs (Past 12 Hours) Vital Signs Temp Pulse Pulse Resp BP Pulse Ox O2 Del Method 05/09/23 08:03 36.4 C L 71 20 130/82 96 Nasal Cannula 05/09/23 02:38 36.6 C 55 L 16 105/68 95 Room Air 05/09/23 00:05 70 05/08/23 23:19 36.9 C 70 20 108/72 94 Room Air 05/08/23 22:24 Nasal Cannula 05/08/23 21:28 Nasal Cannula 05/08/23 21:26 36.6 C 78 18 121/83 88 L Room Air 05/08/23 20:45 88 L Nasal Cannula 05/08/23 20:14 95 H 18 102/72 91 Room Air O2 Flow Rate 05/09/23 08:03 2 05/09/23 02:38 05/09/23 00:05 05/08/23 23:19 05/08/23 22:24 1 05/08/23 21:28 1 05/08/23 21:26 05/08/23 20:45 0 05/08/23 20:14 PG Care Time/CCT Total # of Minutes Spent Total Time Spent with Patient: Total time spent is greater than 50% in coordination of care (as documented) at patient's floor/unit and/or counseling patient: Coding Level of Care Code 07050 INT INP/OBS CARE 3/75MIN Diagnoses Hilar adenopathy R59.0 SOB (shortness of breath) R06.02 Hypercalcemia E83.52
[2023-05-09] MEDS: FLUoxetine HCL 20 MG CAP PO SCH (08:14)
[2023-05-09] MEDS: buPROPion HCl 75 MG TABLET PO SCH (08:14)
[2023-05-09] MEDS: FAMOTIDINE 40 MG TABLET PO SCH (08:14)
[2023-05-09] MEDS: UMECLIDINIUM/VILANTEROL 62.5/25MCG 7 PUFFS/INHALER INH SCH (08:15)
[2023-05-09] MEDS: GABAPENTIN 600 MG TAB PO SCH ×3 (08:15→20:51)
[2023-05-09] MEDS: FLUTICASONE FUROATE 100MCG 14 PUFFS/INHALER INH SCH (08:16)
[2023-05-09] MEDS ORDERED: hydrOXYzine HCl 25 MG TAB PO SCH ×2 (09:00→17:00)
[2023-05-09] MEDS ORDERED: LACTULOSE SYRUP 20 GM/30 ML UDC PO SCH (09:00)
[2023-05-09] MEDS ORDERED: DexMEDEtomidine HCL IV 100 MCG/ML VIAL IV ONE (09:19)
[2023-05-09] MEDS ORDERED: ACETAMINOPHEN 1000 MG/100 ML IV IV ONE (09:19)
--- NOTE | 2023-05-09 11:08 | Hospitalist Progress Note ---
Date of Service May 09, 2023 Assessment & Plan (1) Sarcoidosis: Plan: - Presumed diagnosis with hilar adenopathy, hypercalcemia and shortness of breath, but malignancy cannot be fully ruled out - Consulted pulmonology Endobronchial ultrasound with FNA + bronchoscopy today Consulted nephrology to evaluate/manage hypercalcemia due to possible sarcoidosis >Gentle hydration with NSS >Renal US >Hypercalcemia -- non-PTH mediated; hydration to manage hypercalcemia; serum MILAGROS and 24h urine calcium If granulomas seen on biopsy -- start Prednisone therapy and wean off in next several weeks to assess clinical response Consider outpatient PFTs and repeat imaging (2) Hypercalcemia: Plan: - Suspected due to sarcoidosis - Pulmonology consulted Bronchoscopy to be done today - Lasix given for pedal edema which helped improve her edema - Monitor CMP (3) Pedal edema: Plan: - Considering possibility of Right-sided heart failure due to sarcoidosis or Venous stasis as potential causes - Appears to already be improving with of Lasix and leg elevation - Continue Lasix 20 mg IV daily - TTE: normal LV systolic function; EF 60-65%; no regional wall motion abnormalities Technically difficult study (4) Schizoaffective disorder: Plan: - On Invega monthly injections - next dose due May 25 (5) Bipolar disorder: Plan: - Continue bupropion, gabapentin, fluoxetine, Invega Plan VTE Prophylaxis - low risk Diet - low Na, NPO after midnight Disposition - admit to med/tele Admission and Anticipated Discharge Date Admission Date: May 08, 2023 Supervising Physician Co-Signing Physician Notes I personally examined the patient and verified all khan points of history and ex am, discussed case, and agree with decision making with Dr Gutierrez feeling OK family present d/w pulmonary updated pt and family to the best of my ability vitals noted nad heent nc at mmm breathing unlabored no accessory muscles good effort skin no rashes no pallor or icterus on 2L sarcoid -steroids, secondary w/u, possible home O2 -anticipate home tomorrow assuming ongoing clinical stability otherwise as above Subjective Arely is a 38 y/o female who was was admitted due to progressive SOB and bilateral LE swelling. She reports feeling well today and her bilateral LE edema has improved, but still feels SOB, especially when lying flat. She denies having chest pain, fevers, chills, weakness, or any other symptoms. Review of Systems Review of Systems: As per HPI. Physical Exam Physical Exam: General: Alert. Oriented to person, time, and place. Afebrile. No acute distress. Eyes: pupils equal and reactive to light bilaterally, extraocular movements intact. Cardiac: Regular rate and rhythm, no murmurs/rubs/gallops. Respiratory: Clear to auscultation bilaterally, no wheezes/rales/rhonchi. No increased work of breathing. Symmetrical chest rise. No respiratory distress. Abdomen: Soft, nontender, nondistended. Bowel sounds present. Lower Extremities:Bilateral LE swelling without pitting, no erythema, no deep calf tenderness Psych: Euthymic affect. Mood and affect congruence. Regular speech rate and content. Results & Data Results & Data Vital Signs (Past 12 Hours) Vital Signs Temp Pulse Pulse Resp BP Pulse Ox O2 Del Method 05/09/23 08:03 36.4 C L 71 20 130/82 96 Nasal Cannula 05/09/23 02:38 36.6 C 55 L 16 105/68 95 Room Air 05/09/23 00:05 70 05/08/23 23:19 36.9 C 70 20 108/72 94 Room Air O2 Flow Rate 05/09/23 08:03 2 05/09/23 02:38 05/09/23 00:05 05/08/23 23:19 Resident Activity Tracking Resident Involvement: Resident Care Provided Care Provided: Adult Hospital Medicine
--- NOTE | 2023-05-09 11:16 | XCELERA ---
[id number] \\[email or web address]\[id number]
[2023-05-09] MEDS ORDERED: PROPOFOL IV EMULSION 10 MG/ML 20 ML VIAL IV ONE (11:30)
[2023-05-09] MEDS ORDERED: LIDOCAINE 2% 2 ML VIAL/AMP(20MG/ML) INFIL ONE (11:30)
[2023-05-09] MEDS ORDERED: MIDAZOLAM HCL 1 MG/ML 2ML VIAL ONE (11:31)
--- NOTE | 2023-05-09 11:33 | History & Physical Bridge Note ---
Date of Service May 09, 2023 History & Physical Bridge Note I have examined the patient, reviewed the History & Physical and in the interval since the performance of the History & Physical I have noted the following changes of clinical significance: no changes noted
--- NOTE | 2023-05-09 11:33 | Anesthesiology Consultation ---
Date of Service May 09, 2023 Assessment & Plan (1) Encounter for pre-operative examination: Chart Review Chart Review: Acceptable Risk for Surgery and Patient NOT seen in Pre Admission Testing Consults Requested none History Surgery Operation Date: 05/09/23 12:10 Proposed Procedures p Endobronchial Ultrasound (EBUS) - Kin Luz MD Height/Weight Height: 5 ft 4 in Weight: 108.6 kg Allergies Allergy/AdvReac Type Severity Reaction Status Date / Time morphine Allergy Unknown SEVERE Unverified 05/08/23 16:18 MIGRANES & VOMITING escitalopram [From Lexapro] Allergy severe Verified 05/08/23 16:19 migraine and vomiting Medications Home Medications Medication Instructions Recorded Confirmed Last Taken adalimumab 40 mg/0.4 mL 40 mg subcut .EVERY 2 WEEKS 05/08/23 05/08/23 04/29/23 subcutaneous pen kit (Humira(CF) Pen) buprenorphine 100 mg/0.5 mL 100 mg subcut MONTHLY 05/08/23 05/08/23 05/08/23 solution,exten.rel.subcutaneous syringe (Sublocade) bupropion HCl 75 mg tablet 75 mg PO QAM 05/08/23 05/08/23 05/08/23 cholecalciferol (vitamin D3) 50 4,000 unit PO QAM 05/08/23 05/08/23 05/08/23 mcg (2,000 unit) capsule famotidine 40 mg tablet 40 mg PO QAM 05/08/23 05/08/23 05/08/23 fluoxetine 20 mg capsule 20 mg PO QAM 05/08/23 05/08/23 05/08/23 fluticasone fur. 100 mcg-umeclid 1 ea inhalation QAM 05/08/23 05/08/23 05/08/23 62.5 mcg-vilant 25 mcg inhalat.powder (Trelegy Ellipta) gabapentin 600 mg tablet 600 mg PO TID 05/08/23 05/08/23 05/08/23 1 dose hydroxyzine HCl 50 mg tablet See Rx Instructions .Route .COMPLEX 05/08/23 05/08/23 05/08/23 morning dose lactulose 10 gram/15 mL oral 30 ml PO Q OTHER DAY 05/08/23 05/08/23 05/07/23 solution montelukast 10 mg tablet 10 mg PO HS 05/08/23 05/08/23 05/07/23 paliperidone palmitate 234 mg/1.5 234 mg IM MONTHLY 05/08/23 05/08/23 04/24/23 mL intramuscular syringe (Invega Sustenna) rizatriptan 10 mg tablet 10 mg PO UD 05/08/23 05/08/23 Unknown Active Medications Generic Name Dose Route Start Last Admin Trade Name Marek PRN Reason Stop Dose Admin Bupropion HCl 75 mg 05/09/23 09:00 05/09/23 08:14 Bupropion Hcl 75 Mg Tablet PO 06/08/23 08:59 75 mg QAM CHINYERE Administration Famotidine 40 mg 05/09/23 09:00 05/09/23 08:14 Famotidine 40 Mg Tablet PO 06/08/23 08:59 40 mg QAM CHINYERE Administration Fluoxetine HCl 20 mg 05/09/23 09:00 05/09/23 08:14 Fluoxetine Hcl 20 Mg Cap PO 06/08/23 08:59 20 mg QAM CHINYERE Administration Fluticasone Furoate 1 puffs 05/09/23 09:00 05/09/23 08:16 Fluticasone Furoate 100mcg 14 Puffs/Inhaler INH 06/08/23 08:59 1 puffs DAILY CHINYERE Administration Protocol Gabapentin 600 mg 05/08/23 21:16 05/09/23 08:15 Gabapentin 600 Mg Tab PO 06/07/23 21:15 600 mg TID CHINYERE Administration Hydroxyzine HCl 50 mg 05/09/23 09:00 05/09/23 08:13 Hydroxyzine Hcl 25 Mg Tab PO 06/08/23 08:59 50 mg DAILY CHINYERE Administration Hydroxyzine HCl 75 mg 05/09/23 14:00 05/08/23 23:48 Hydroxyzine Hcl 25 Mg Tab PO 06/08/23 13:59 75 mg DAILY@1400,2100 CHINYERE Administration Lactulose 20 gm 05/09/23 09:00 05/09/23 08:16 Lactulose Syrup 20 Gm/30 Ml Udc PO 06/08/23 08:59 Not Given Q48H CHINYERE Montelukast Sodium 10 mg 05/08/23 21:16 05/08/23 22:38 Montelukast Sodium 10 Mg Tablet PO 06/07/23 21:15 10 mg HS CHINYERE Administration Umeclidinium/Vilanterol 1 puffs 05/09/23 09:00 05/09/23 08:15 Umeclidinium/Vilanterol 62.5/25mcg 7 Puffs/Inhaler INH 06/08/23 08:59 1 puffs DAILY CHINYERE Administration Protocol Past Medical History Medical History Bipolar disorder Schizoaffective disorder Hypothyroidism Social History Smoking Status: Former smoker Smoking cigarettes per day: smoked for years but quit, vaped for years but quit 2-3 years ago Do You Dip or Chew Tobacco: No Hx Alcohol Use: No 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, Sublocade now) substance use type: prescription drug Physical Exam Vital Signs Last Vital Signs Temp 97.9 F 05/09/23 11:10 Pulse 71 05/09/23 11:10 Resp 20 05/09/23 11:10 BP 121/77 05/09/23 11:10 Pulse Ox 91 05/09/23 11:10 O2 Del Method Room Air 05/09/23 11:10 O2 Flow Rate 2 05/09/23 08:03 Testing Laboratory Results 05/08/23 11:38 05/08/23 11:38 PT 11.4 Seconds (9.0-12.0) 05/08/23 11:38 INR 1.0 (0.9-1.1) 05/08/23 11:38 APTT 31 Seconds (21-31) 05/08/23 11:38 Urine Color Yellow 05/08/23 22:45 Urine Appearance Clear (Clear) 05/08/23 22:45 Urine pH 5.0 (4.5-7.5) 05/08/23 22:45 Ur Specific [place] > 1.045 (1.000-1.030) H 05/08/23 22:45 Urine Protein 1+ (Negative) H 05/08/23 22:45 Urine Glucose (UA) Negative (Negative) 05/08/23 22:45 Urine Ketones Trace (Negative) H 05/08/23 22:45 Urine Nitrite Negative (Negative) 05/08/23 22:45 Ur Leukocyte Esterase 1+ (Negative) H 05/08/23 22:45 Urine WBC (Auto) >30 /hpf (0-5) H 05/08/23 22:45 Urine RBC (Auto) 10-30 /hpf (0-4) H 05/08/23 22:45 U Hyaline Cast (Auto) >30 /lpf (0-5) H 05/08/23 22:45 U Epithel Cells (Auto) >30 /lpf (0-5) H 05/08/23 22:45 Urine Bacteria (Auto) Negative (Negative) 05/08/23 22:45 Electrocardiogram Date: 05/08/23 Findings: + NSR @
[2023-05-09 11:44] LABS: Pregnancy Test, Urine Negative (Negative)
[2023-05-09] MEDS ORDERED: ePHEDrine sulfate 50 MG/ML AMP IV PRN (11:46)
[2023-05-09] MEDS ORDERED: ATROPINE SULFATE 0.1 MG/ML 10ML SYR IV PRN (11:46)
[2023-05-09] MEDS ORDERED: fentaNYL citrate PF 100 MCG/2 ML VIAL IV PRN (11:46)
[2023-05-09] MEDS ORDERED: ONDANSETRON INJ 2 MG/ML 2 ML VIAL IV PRN (11:46)
[2023-05-09] MEDS ORDERED: LACTATED RINGER'S 1,000 ML IV SCH (12:00)
--- NOTE | 2023-05-09 12:16 | Nephrology Consultation ---
Date of Consultation May 09, 2023 Assessment & Plan (1) Renal impairment: * Baseline Cr is unknown. Patient presented w/ Cr 1.6 and later received IV contrast * Suspect renal impairment on the basis of hypercalcemia, dehydration and DERIC * Urine microscopy is negative for blood but does show CaOx crystals and 1-5 granular casts, UPCR 0.4 * Will provide gentle hydration w/ 0.9NS * Will order renal US * Monitor PRP, UO (2) Hypercalcemia: * Non-PTH mediated hypercalcemia * Minimal proteinuria * 05/08/23 CTA of chest shows pulmonary and mediastinal lymphadenopathy suggestive of sarcoidosis * Will provide IV hydration to help correct serum Ca * POC discussed w/ Pulmonology this am. Patient to undergo bronchoscopy w/ biopsy later today * Recommend prednisone therapy for presumed sarcoidosis. Defer management to Pulmonology * Will order serum MILAGROS level and 24 hour urine Ca History of Present Illness Reason for Consultation: JESSICA, hypercalcemia Attending Physician: Reilly Birch, History of Present Illness Miss Landin is a 38 year old white female who is seen at the request of [facility] Hospitalist Service for evaluation of JESSICA, hypercalcemia. Information for the HPI is obtained from direct patient interview and review of the EMR. HPI is summarized as follows: Miss Landin resides in [place], [place]. She had the majority of her medical care at [facility]. She denies any prior h/o kidney disease. She has never undergone Nephrology evaluation in the past. Her baseline creatinine is unknown. Miss Landin's medical history is significant for bipolar disorder, ankylosing spondylitis, and opiate addiction. She reports a diagnosis of COPD 2 years ago. Miss Landin presented to [facility] EMD last evening for evaluation of dyspnea and LE swelling. CXR was concerning for hilar lymphadenopathy, serum Ca was 12.3 and creatinine 1.6. Chest CTA was negative for PE but did reveal extensive pulmonary, mediastinal and hilar lymphadenopathy concerning for sarcoidosis. Pulmonology plans bronchoscopy with biopsy later today. Allergies Allergy/AdvReac Type Severity Reaction Status Date / Time morphine Allergy Unknown SEVERE Verified 05/09/23 11:49 MIGRANES & VOMITING escitalopram [From Lexapro] Allergy severe Verified 05/09/23 11:49 migraine and vomiting Home Medications Medication Instructions Recorded Confirmed Type adalimumab 40 mg/0.4 mL 40 mg subcut .EVERY 2 WEEKS 05/08/23 05/08/23 History subcutaneous pen kit (Humira(CF) Pen) buprenorphine 100 mg/0.5 mL 100 mg subcut MONTHLY 05/08/23 05/08/23 History solution,exten.rel.subcutaneous syringe (Sublocade) bupropion HCl 75 mg tablet 75 mg PO QAM 05/08/23 05/08/23 History cholecalciferol (vitamin D3) 50 4,000 unit PO QAM 05/08/23 05/08/23 History mcg (2,000 unit) capsule famotidine 40 mg tablet 40 mg PO QAM 05/08/23 05/08/23 History fluoxetine 20 mg capsule 20 mg PO QAM 05/08/23 05/08/23 History fluticasone fur. 100 mcg-umeclid 1 ea inhalation QAM 05/08/23 05/08/23 History 62.5 mcg-vilant 25 mcg inhalat.powder (Trelegy Ellipta) gabapentin 600 mg tablet 600 mg PO TID 05/08/23 05/08/23 History hydroxyzine HCl 50 mg tablet See Rx Instructions .Route .COMPLEX 05/08/23 05/08/23 History lactulose 10 gram/15 mL oral 30 ml PO Q OTHER DAY 05/08/23 05/08/23 History solution montelukast 10 mg tablet 10 mg PO HS 05/08/23 05/08/23 History paliperidone palmitate 234 mg/1.5 234 mg IM MONTHLY 05/08/23 05/08/23 History mL intramuscular syringe (Invega Sustenna) rizatriptan 10 mg tablet 10 mg PO UD 05/08/23 05/08/23 History Patient History Medical History Bipolar disorder Schizoaffective disorder Hypothyroidism Social History Smoking Status: Former smoker Tobacco Type: Cigarettes and E-cigarettes / Vaping Cigarettes Per Day: smoked for years but quit, vaped for years but quit 2-3 years ago; Do You Dip or Chew Tobacco: No; Hx Alcohol Use: No 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, Sublocade now) Preferred Language: Spanish Communication Ability: Effective Director Translation Required: No Beliefs That Will Affect Care: None Current Living Situation: Other Current Living Situation Comment: lives with 3 kids age 12-20 Other Information That Helps Us Care for You: Yes (Mom helps pt and drives her to appointments) Feels Safe at Home: Yes Safety Concerns: Feels Safe At This Time Assistive Devices: CPAP and Denture - Upper Review of Systems Constitutional: no fever Eyes: no problem reported Ear, Nose, Mouth, Throat: no problem reported Respiratory: + dyspnea; no cough Cardiovascular: no chest pain Gastrointestinal: no abdominal pain, no nausea, no vomiting and no diarrhea/loose stools Genitourinary: no dysuria Physical Exam Constitutional: not in distress Eyes: PERRL, conjunctivae normal, anicteric sclerae ENMT: external ear and nose normal, oropharynx normal Neck: trachea midline, no thyromegaly Respiratory: normal respiratory effort, lungs clear to auscultation Cardiovascular: RRR, no murmur, no edema Gastrointestinal (Abdomen): normal bowel sounds, soft, nontender, no hepatosplenomegaly Skin: no rashes, warm and dry Neurologic: Speech / Cognition: normal speech and normal cognition Results & Data Vital Signs (Past 12 Hours) Vital Signs Temp Pulse Pulse Resp BP Pulse Ox O2 Del Method 05/09/23 11:46 55 L 05/09/23 11:41 36.5 C 75 20 125/75 91 Room Air 05/09/23 11:10 36.6 C 71 20 121/77 91 Room Air 05/09/23 08:03 36.4 C L 71 20 130/82 96 Nasal Cannula 05/09/23 02:38 36.6 C 55 L 16 105/68 95 Room Air 05/09/23 00:05 70 O2 Flow Rate 05/09/23 11:46 05/09/23 11:41 05/09/23 11:10 05/09/23 08:03 2 05/09/23 02:38 05/09/23 00:05 Laboratory Results Laboratory Results WBC 4.17 K/ul (4.8-10.8) L 05/08/23 11:38 RBC 5.32 M/uL (4.20-5.40) 05/08/23 11:38 Hgb 12.3 g/dl (12.0-16.0) 05/08/23 11:38 Hct 40.0 % (37.0-47.0) 05/08/23 11:38 MCV 75.2 fL (80.0-100.0) L 05/08/23 11:38 MCH 23.1 pg (25.0-34.0) L 05/08/23 11:38 MCHC 30.8 g/dL (32.0-36.0) L 05/08/23 11:38 RDW Std Deviation 39.6 fL (36.4-46.3) 05/08/23 11:38 RDW Coeff of Shelley 14.6 % (11.5-14.5) H 05/08/23 11:38 Plt Count 237 K/uL (130-400) 05/08/23 11:38 MPV 10.1 fL (9.4-12.4) 05/08/23 11:38 Immature Gran % (Auto) 0.5 % 05/08/23 11:38 Neut % (Auto) 59.4 % 05/08/23 11:38 Lymph % (Auto) 22.8 % 05/08/23 11:38 Stark % (Auto) 7.4 % 05/08/23 11:38 Eos % (Auto) 8.9 % 05/08/23 11:38 Baso % (Auto) 1.0 % 05/08/23 11:38 Neut # (Auto) 2.48 K/uL (1.40-6.50) 05/08/23 11:38 Lymph # (Auto) 0.95 K/uL (1.20-3.40) L 05/08/23 11:38 Stark # (Auto) 0.31 K/uL (0.11-0.59) 05/08/23 11:38 Eos # (Auto) 0.37 K/uL (0.00-0.50) 05/08/23 11:38 Baso # (Auto) 0.04 K/uL (0.00-0.20) 05/08/23 11:38 Immature Gran # (Auto) 0.02 K/uL (0.01-0.20) 05/08/23 11:38 ESR 58 mm/hr (0-20) H 05/08/23 17:03 PT 11.4 Seconds (9.0-12.0) 05/08/23 11:38 INR 1.0 (0.9-1.1) 05/08/23 11:38 APTT 31 Seconds (21-31) 05/08/23 11:38 PTT Ratio 1.1 05/08/23 11:38 Sodium 135 mmol/L (136-145) L 05/08/23 11:38 Potassium 3.8 mmol/L (3.5-5.1) 05/08/23 11:38 Chloride 101 mmol/L (98-107) 05/08/23 11:38 Carbon Dioxide 27 mmol/L (21-32) 05/08/23 11:38 Anion Gap 7 (3-11) 05/08/23 11:38 BUN 18 mg/dl (6-23) 05/08/23 11:38 Creatinine 1.63 mg/dl (0.6-1.2) H 05/08/23 11:38 Est Cr Clr Drug Dosing 56.2 ml/min 05/08/23 11:38 Est GFR ( Amer) 45.5 ml/min 05/08/23 11:38 Est GFR (Non-Af Amer) 39.3 ml/min 05/08/23 11:38 BUN/Creatinine Ratio 11.0 (10-20) 05/08/23 11:38 Glucose 108 mg/dl (70-99(Fasting)) H 05/08/23 11:38 Lactate 1.5 mmol/L (0.4-2.0) 05/08/23 12:50 Calcium 12.3 mg/dl (8.6-10.3) H* 05/08/23 11:38 Ionized Calcium 1.57 mmol/L (1.12-1.32) H 05/08/23 17:03 Phosphorus 3.4 mg/dl (2.5-4.9) 05/08/23 11:38 Magnesium 2.1 mg/dl (1.7-2.4) 05/08/23 11:38 Iron 48 mcg/dl (35-150) 05/08/23 11:38 TIBC 376 mcg/dl (250-450) 05/08/23 11:38 Unsaturated IBC 328 mcg/dl (155-355) 05/08/23 11:38 Transferrin % Sat 13 % (15-50) L 05/08/23 11:38 Ferritin 33.5 ng/ml (8-388) 05/08/23 11:38 Total Bilirubin 0.5 mg/dl (0.2-1.0) 05/08/23 11:38 AST 31 U/L (13-39) 05/08/23 11:38 ALT 30 U/L (7-52) 05/08/23 11:38 Alkaline Phosphatase 155 U/L (34-104) H 05/08/23 11:38 Troponin I High Sens 5.2 pg/ml (0-14) 05/08/23 11:38 C-Reactive Protein 2.24 mg/dl (0-0.5) H 05/08/23 11:38 B-Natriuretic Peptide 55 pg/ml (0-100) 05/08/23 11:38 Total Protein 7.7 gm/dl (6.0-8.3) 05/08/23 11:38 Albumin 4.2 gm/dl (3.4-5.0) 05/08/23 11:38 Globulin 3.5 gm/dl (2.5-4.0) 05/08/23 11:38 Albumin/Globulin Ratio 1.2 (0.9-2) 05/08/23 11:38 25-OH Vitamin D Total 23.4 ng/ml (30-100) L 05/08/23 11:38 Procalcitonin 0.31 ng/ml (0-0.5) 05/08/23 11:38 TSH 2.683 uIu/ml (0.300-4.500) 05/08/23 11:38 PTH Intact 2.2 pg/ml (12.0-88.0) L 05/08/23 11:38 Urine Color Yellow 05/08/23 22:45 Urine Appearance Clear (Clear) 05/08/23 22:45 Urine pH 5.0 (4.5-7.5) 05/08/23 22:45 Ur Specific [place] > 1.045 (1.000-1.030) H 05/08/23 22:45 Urine Protein 1+ (Negative) H 05/08/23 22:45 Urine Glucose (UA) Negative (Negative) 05/08/23 22:45 Urine Ketones Trace (Negative) H 05/08/23 22:45 Urine Blood Negative (Negative) 05/08/23 22:45 Urine Nitrite Negative (Negative) 05/08/23 22:45 Urine Bilirubin Negative (Negative) 05/08/23 22:45 Urine Urobilinogen Negative (Negative) 05/08/23 22:45 Ur Leukocyte Esterase 1+ (Negative) H 05/08/23 22:45 Urine WBC (Auto) >30 /hpf (0-5) H 05/08/23 22:45 Urine RBC (Auto) 10-30 /hpf (0-4) H 05/08/23 22:45 U Hyaline Cast (Auto) >30 /lpf (0-5) H 05/08/23 22:45 U Epithel Cells (Auto) >30 /lpf (0-5) H 05/08/23 22:45 Urine Bacteria (Auto) Negative (Negative) 05/08/23 22:45 Ur Renal Epithelial Cell 0-5 /lpf (0-5) 05/08/23 22:45 Calcium Oxalate Crystal Present (None Prsent) A 05/08/23 22:45 Granular Casts 1-5 /lpf (0) H 05/08/23 22:45 Ur Random Creatinine 146.7 mg/dl 05/08/23 22:45 U Random Total Protein 52.7 mg/dl (0-11.9) H 05/08/23 22:45 Protein/Creatinin Ratio 0.4 (0-0.2) H 05/08/23 22:45 Urine Test Negative (Negative) 05/09/23 Unknown SARS-CoV-2 (PCR) NEGATIVE (Negative) 05/08/23 11:38 Influenza Type A (PCR) Negative (Neg) 05/08/23 11:38 Influenza Type B (PCR) Negative (Neg) 05/08/23 11:38 RSV (RT-PCR) Negative (Neg) 05/08/23 11:38 Impressions Chest X-Ray 05/08/23 11:37 XR chest 1V not portable CLINICAL HISTORY: Chest pain, nonspecific TECHNIQUE: Single frontal radiograph of the chest was obtained. Comparison: None available at the time of this dictation. FINDINGS: No lines and tubes are seen. Prominence of the right superior hilum is seen at the level of the right paratracheal stripe. The lungs are clear. No evidence of pleural effusion or pneumothorax. IMPRESSION: Prominence of the right superior hilum is nonspecific. If not previously evaluated, CT is recommended to exclude underlying mass. ACT 112: Positive. There are findings on this exam that require communication between the performing entity and the patient following Patient Test Result Information Act ([place] Act 112) guidelines. Electronically signed by: Kenyon Chen M.D. 05/08/2023 12:20 PM Chest CTA 05/08/23 12:31 CT angio chest PE protocol CLINICAL HISTORY: PE, please also eval ? right hilar mass TECHNIQUE: Multidetector row helical CT of the chest was performed with angiographic protocol. Coronal and sagittal reformations were obtained. Coronal and sagittal MIPS were obtained from the axial data set and were submitted for review. Automated dose lowering techniques and/or adjustment according to patient size were utilized for this exam. CT DOSE: 890.56 mGy.cm Comparison: Comparison is made to chest radiograph 05/08/2023 FINDINGS: Lungs and pleura: Extensive nodularity is seen throughout the lungs and there is atelectasis and peripheral thickening in the lower lungs. Heart and pericardium: Heart size is normal. No pericardial effusion. Vessels: No evidence of pulmonary embolism. Mediastinum and elizabeth: Enlarged mediastinal lymph nodes measure up to 31 mm in the right lower paratracheal station. Bilateral hilar lymph nodes are seen. Chest wall and lower neck: Unremarkable. Abdomen: Prominent elpidio hepatis lymph nodes measure up to 18 mm in diameter and there are prominent gastrohepatic and retroperitoneal nodes are seen. Bones: Mild degenerative changes are seen. IMPRESSION: No evidence of pulmonary embolus. Extensive pulmonary nodularity may reflect infectious/inflammatory process. There is extensive mediastinal and hilar lymphadenopathy, likely reactive, explaining the abnormal contour on prior chest x-ray. Follow-up to resolution is recommended. ACT 112: Negative or not required by law. Electronically signed by: Kenyon Chen M.D. 05/08/2023 2:03 PM Venous Doppler Study 05/08/23 12:38 US venous doppler LE BI CLINICAL HISTORY: swelling TECHNIQUE: Bilateral lower extremity real-time compression venous ultrasound with Color Doppler imaging. Utilizing real-time ultrasonic imaging multiple real time high-resolution ultrasonic images with compression and noncompression maneuvers of the deep venous system in addition to color doppler imaging were performed from the common femoral vein through the proximal calf veins. COMPARISON: None available at the time of this dictation. FINDINGS/IMPRESSION: Currently there is normal compressibility of the deep venous system from the common femoral vein through the proximal calf veins. No superficial venous thrombosis is identified. ACT 112: Negative or not required by law. Electronically signed by: Kenyon Chen M.D. 05/08/2023 3:45 PM PG Care Time/CCT Total # of Minutes Spent Total Time Spent with Patient: Total time spent is greater than 50% in coordination of care (as documented) at patient's floor/unit and/or counseling patient: Coding Level of Care Code 14902 IN/OBS CONSULT LVL 5,80M Diagnoses Renal impairment N28.9 Hypercalcemia E83.52
[2023-05-09] MEDS ORDERED: fentaNYL citrate PF 100 MCG/2 ML VIAL ONE (12:23)
[2023-05-09] MEDS ORDERED: SODIUM CHLORIDE 0.9% 1,000 ML IV SCH (12:30)
[2023-05-09] MEDS ORDERED: ONDANSETRON INJ 2 MG/ML 2 ML VIAL ONE (13:01)
--- NOTE | 2023-05-09 13:06 | Procedure Note ---
Procedure Note: Bronchoscopy Procedure PREOPERATIVE DIAGNOSIS: Bilateral mediastinal and hilar adenopathy seen on CT chest POSTOPERATIVE DIAGNOSIS: Pulmonary sarcoidosis PROCEDURE PERFORMED: Endobronchial ultrasound with FNA utilizing a 21-gauge needle from station 7 lymph nodes and station 4R lymph nodes. Inspection bronchoscopy of the bilateral bronchial tree and BAL of the right upper lobe. COMPLICATIONS: None. INDICATION: Evaluate for sarcoidosis and rule out malignancy/infectious etiology. Images were personally reviewed prior to initiation of the procedure. Informed consent was obtained from the patient. Timeout was performed immediately prior to the procedure. All were in agreement. PROCEDURE: The patient was taken to the OR by the anesthesia staff. The patient had a supraglottic airway placed by the anesthesiology staff and all vital sign monitoring and ventilator monitoring was performed by the anesthesia staff. The EBUS bronchoscope was inserted via the supraglottic airway adapter through the supraglottic airway. The vocal cords were visualized and appeared normal. The scope was passed through the vocal cords. I performed an inspection of station 10 R, 4R, 4L, 10 L station 7 lymph nodes. Pathologic lymphadenopathy was noted in all of the stations. I elected to perform several FNA passes of the station 7 lymph node with a 21-gauge needle. Adequate lymphocytic tissue was obtained and granulomas were seen on rapid onsite cytologic review. I then turned my attention to station 4R and performed several passes of the station utilizing a 21-gauge FNA needle. Adequate lymphocytic material was aspirated along with granulomas which were seen on rapid onsite cytologic evaluation. Adequate hemostasis was achieved and the endobronchial ultrasound scope was removed from the airway. I then inserted the diagnostic bronchoscope via the supraglottic airway and through the vocal cords which again appeared normal on gross examination. The trachea was inspected and there was clear evidence of tracheobronchial malacia with excessive dynamic airway collapse of the bilateral tracheobronchial tree. I inspected the right and left tracheobronchial tree and diffusely seen were smooth subcentimeter nodular densities along the mucosa of the airways likely consistent with the patient's clinical history of sarcoidosis. I then wedged into the right upper lobe and performed a BAL with 120 mL of saline. Approximately 45 mL of fluid was aspirated back. The scope was then withdrawn to the level of the jammie. No significant bleeding was seen. The scope was then completely withdrawn. The patient was extubated per anesthesia protocol. Recommendations: Rapid onsite cytologic examination of station 7 and 4R lymph node FNA passes suggestive of abundant granulomas. This is consistent with likely sarcoidosis. 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 The specimens will be sent for AFB cultures, fungal cultures and routine cultures. PJP PCR, Aspergillus antigen and CD4/CD8 ratio were sent as well. [facility] Procedure Codes (Charges) Pulmonary/Thoracic Procedure 1: Pulmonary and Thoracic: 22731 Bronchoscopy, w/EBUS 1 or 2 mediastinal Procedure 2: Pulmonary and Thoracic: 29030 Dx bronchoscopy/BAL
--- NOTE | 2023-05-09 13:21 | XRay Report ---
XR chest 1V portable HISTORY: Post Bronchoscopy COMPARISON: Chest 05/08/2023. FINDINGS: There are low lung volumes. Suboptimal evaluation of the chest due to the patient's body covarrubias bitus and portable technique. No definite pneumothorax. No pleural effusions. The heart remains mildl y enlarged. Diffuse reticulonodular interstitial thickening and mediastinal/hilar lymphadenopathy per sists. No acute fractures identified. IMPRESSION: 1. No pneumothorax. 2. Mild enlargement of the cardiac silhouette. This may be accentuated by the low lung volumes. 3. Reticulonodular interstitial thickening with mediastinal and bilateral hilar lymphadenopathy. This is better appreciated on the prior chest CT. This may represent sarcoidosis. A neoplastic process co uld also have a similar appearance. ACT 112: Negative or not required by law. Electronically signed by: Mario Lobo M.D. 05/09/2023 1:20 PM
--- NOTE | 2023-05-09 13:42 | Anesthesiology Progress Note ---
Date of Service May 09, 2023 Anesthesia Post Procedure Vital Signs Vital Signs: Temp Pulse Pulse Resp BP Pulse Ox O2 Del Method 05/09/23 13:25 87 15 81/56 L 92 Oxymask 05/09/23 13:15 85 12 105/49 L 93 Oxymask 05/09/23 13:05 36.4 C L 66 14 103/46 L 92 Oxymask 05/09/23 11:46 55 L 05/09/23 11:41 36.5 C 75 20 125/75 91 Room Air 05/09/23 11:10 36.6 C 71 20 121/77 91 Room Air 05/09/23 08:03 36.4 C L 71 20 130/82 96 Nasal Cannula 05/09/23 02:38 36.6 C 55 L 16 105/68 95 Room Air 05/09/23 00:05 70 05/08/23 23:19 36.9 C 70 20 108/72 94 Room Air 05/08/23 22:24 Nasal Cannula 05/08/23 21:28 Nasal Cannula 05/08/23 21:26 36.6 C 78 18 121/83 88 L Room Air 05/08/23 20:45 88 L Nasal Cannula 05/08/23 20:14 95 H 18 102/72 91 Room Air 05/08/23 18:12 74 16 136/81 92 Room Air 05/08/23 17:08 68 05/08/23 16:16 66 17 127/87 97 Room Air 05/08/23 15:53 67 16 117/81 94 Room Air O2 Flow Rate 05/09/23 13:25 3 05/09/23 13:15 4 05/09/23 13:05 5 05/09/23 11:46 05/09/23 11:41 05/09/23 11:10 05/09/23 08:03 2 05/09/23 02:38 05/09/23 00:05 05/08/23 23:19 05/08/23 22:24 1 05/08/23 21:28 1 05/08/23 21:26 05/08/23 20:45 0 05/08/23 20:14 05/08/23 18:12 05/08/23 17:08 05/08/23 16:16 05/08/23 15:53 Pain Intensity Right Leg: Pain Intensity: 3 Transfer of Care Handoff Completed per policy Notes Mental Status: alert / awake / arousable Patient Amnestic to Procedure: Yes Nausea / Vomiting: adequately controlled Pain: adequately controlled Airway Patency, RR, SpO2: stable & adequate BP & HR: stable & adequate Hydration State: stable & adequate Anesthetic Complications: no major complications apparent
[2023-05-09] MEDS ORDERED: methylPREDNISolone 40 MG in SYRINGE 0 ML IV ONE (14:00)
--- NOTE | 2023-05-09 15:39 | Ultrasound Report ---
RENAL ULTRASOUND CLINICAL HISTORY: Acute kidney injury. COMPARISON STUDY: None. TECHNIQUE: Sonography of the kidneys and the urinary bladder was performed. FINDINGS: Dental note is made of increased hepatic echogenicity. The liver is enlarged, measuring 25 cm in craniocaudal dimension. There is no hydronephrosis. The right kidney measures 13.5 x 2.8 x 4.9 cm and the left measures 10.8 x 4.1 x 4.5 cm. No shadowing calculi are identified. Bladder is collaps ed. IMPRESSION: 1. No hydronephrosis. 2. Hepatic steatosis. ACT 112: Negative or not required by law. Electronically signed by: Segun Caicedo M.D. 05/09/2023 3:38 PM
[2023-05-09 17:02] LABS: Eosinophil Body Fluid Man 2 %; Fluid Mono/Macrophage 75 %; Lymphocyte Body Fluid Man 17 %; Neutrophil Body Fluid Man 6 %
--- NOTE | 2023-05-09 18:11 | Billing Data ---
Date of Service May 09, 2023 Coding Level of Care Code 19328 SUB INP/OBS CARE
[2023-05-09] MEDS: MONTELUKAST SODIUM 10 MG TABLET PO SCH (20:51)
[2023-05-09] MEDS ORDERED: ACETAMINOPHEN 325 MG TAB PO PRN (22:12)
[2023-05-10 06:25] LABS: Hematocrit (blood only) 37.7 % (37.0-47.0); Hemoglobin 11.7 g/dl (12.0-16.0); Mean Corpuscular Hemoglobin 23.6 pg (25.0-34.0); Mean Corpuscular Volume 76.2 fL (80.0-100.0); Mean Platelet Volume 10.5 fL (9.4-12.4); Platelet Count 217 K/uL (130-400); RDW Coefficient of Variation 14.8 % (11.5-14.5); RDW Standard Deviation 40.7 fL (36.4-46.3); Red Blood Count 4.95 M/uL (4.20-5.40)
[2023-05-10 06:43] LABS: BUN Creatinine Ratio 16.3 (10-20); Calcium 10.4 mg/dl (8.6-10.3); Creatinine Clr Calc Pharmacy 61.9 ml/min; Est GFR (African American) 51.6 ml/min; Est GFR (Non-African American) 44.5 ml/min; Potassium 4.3 mmol/L (3.5-5.1)
--- NOTE | 2023-05-10 08:16 | Nephrology Progress Note ---
Date of Service May 10, 2023 Assessment & Plan (1) Renal impairment: Plan: * Baseline Cr is unknown. Patient presented w/ Cr 1.6 and later received IV contrast * Suspect renal impairment on the basis of hypercalcemia, dehydration and DERIC * Cr has improved from 1.6 -->1.4 following gentle hydration * Urine microscopy is negative for blood but does show CaOx crystals and 1-5 granular casts, UPCR 0.4 * Will continue gentle hydration w/ 0.9NS * 05/09/23 Renal US: R 13.5cm, L 10.8cm. No calculi, mass or hydronephrosis * Monitor PRP, UO * If discharge is anticipated, follow up can be provided by PCP and Pulmonology (2) Hypercalcemia: Plan: * Non-PTH mediated hypercalcemia * Minimal proteinuria * 05/08/23 CTA of chest shows pulmonary and mediastinal lymphadenopathy suggestive of sarcoidosis * Will provide IV hydration to help correct serum Ca * Lymph node histology pending, preliminary suggestive of sarcoidosis * Recommend prednisone therapy for presumed sarcoidosis. Defer management to Pulmonology * Will order serum MILAGROS level and 24 hour urine Ca Admission and Anticipated Discharge Date Admission Date: May 08, 2023 Subjective Ms. Landin was evaluated in her hospital room this morning. She denied fever, dyspnea or angina. Review of Systems Constitutional: no fever Eyes: no problem reported Ear, Nose, Mouth, Throat: no problem reported Respiratory: + dyspnea; no cough Cardiovascular: no chest pain Gastrointestinal: no abdominal pain, no nausea, no vomiting and no diarrhea/loose stools Genitourinary: no dysuria Physical Exam 2 Constitutional: not in distress Eyes: PERRL, conjunctivae normal, anicteric sclerae ENMT: external ear and nose normal, oropharynx normal Neck: trachea midline, no thyromegaly Respiratory: normal respiratory effort, lungs clear to auscultation Cardiovascular: RRR, no murmur, no edema Gastrointestinal (Abdomen): normal bowel sounds, soft, nontender, no hepatosplenomegaly Skin: no rashes, warm and dry Neurologic: Speech / Cognition: normal speech and normal cognition Results & Data Vital Signs (Past 12 Hours) Vital Signs Temp Pulse Resp BP Pulse Ox O2 Del Method O2 Flow Rate 05/10/23 07:12 36.3 C L 55 L 20 119/75 96 Nasal Cannula 2 05/10/23 04:38 36.4 C L 62 18 128/80 95 Nasal Cannula 2 05/09/23 23:44 36.4 C L 66 18 126/78 93 Nasal Cannula 2 Laboratory Results Laboratory Results - last 24 hr 05/09/23 05/09/23 05/09/23 12:48 14:35 Unknown WBC RBC Hgb Hct MCV MCH MCHC RDW Std Deviation RDW Coeff of Shelley Plt Count MPV Sodium Potassium Chloride Carbon Dioxide Anion Gap BUN Creatinine Est Cr Clr Drug Dosing Est GFR ( Amer) Est GFR (Non-Af Amer) BUN/Creatinine Ratio Glucose Calcium Angiotensin Convert Enz Pending Urine Test Negative Fluid Neutrophils % 6 Fluid Lymphocytes % 17 Fluid Eosinophils % 2 Fl Monocyt/Macrophag % 75 Fluid Comment BAL CD4/CD8 Ratio Pending Coccidioid immitis DNA Pending Histo/Blasto PCR Result Pending Pneumocyst jirovecii PCR Pending Aspergillus Antigen Pending 05/10/23 05:46 WBC 4.30 L RBC 4.95 Hgb 11.7 L Hct 37.7 MCV 76.2 L MCH 23.6 L MCHC 31.0 L RDW Std Deviation 40.7 RDW Coeff of Shelley 14.8 H Plt Count 217 MPV 10.5 Sodium 137 Potassium 4.3 Chloride 103 Carbon Dioxide 26 Anion Gap 8 BUN 24 H Creatinine 1.47 H Est Cr Clr Drug Dosing 61.9 Est GFR ( Amer) 51.6 Est GFR (Non-Af Amer) 44.5 BUN/Creatinine Ratio 16.3 Glucose 118 H Calcium 10.4 H Angiotensin Convert Enz Urine Test Fluid Neutrophils % Fluid Lymphocytes % Fluid Eosinophils % Fl Monocyt/Macrophag % Fluid Comment BAL CD4/CD8 Ratio Coccidioid immitis DNA Histo/Blasto PCR Result Pneumocyst jirovecii PCR Aspergillus Antigen PG Care Time/CCT Total # of Minutes Spent Total Time Spent with Patient: Total time spent is greater than 50% in coordination of care (as documented) at patient's floor/unit and/or counseling patient: Coding Level of Care Code 76551 SUB INP/OBS CARE 3/50MIN Diagnoses Renal impairment N28.9 Hypercalcemia E83.52
[2023-05-10] MEDS: UMECLIDINIUM/VILANTEROL 62.5/25MCG 7 PUFFS/INHALER INH SCH (08:36)
[2023-05-10] MEDS: FLUTICASONE FUROATE 100MCG 14 PUFFS/INHALER INH SCH (08:37)
[2023-05-10] MEDS: buPROPion HCl 75 MG TABLET PO SCH (08:37)
[2023-05-10] MEDS: FLUoxetine HCL 20 MG CAP PO SCH (08:38)
[2023-05-10] MEDS: FAMOTIDINE 40 MG TABLET PO SCH (08:38)
[2023-05-10] MEDS: hydrOXYzine HCl 25 MG TAB PO SCH ×2 (08:38→14:00)
[2023-05-10] MEDS: GABAPENTIN 600 MG TAB PO SCH ×2 (08:38→13:16)
[2023-05-10] MEDS ORDERED: predniSONE 20 MG TAB PO SCH (09:00)
[2023-05-10] MEDS ORDERED: SODIUM CHLORIDE 0.9% 1,000 ML IV SCH (10:15)
--- NOTE | 2023-05-10 10:50 | Discharge Summary ---
Date of Service May 10, 2023 Admission HPI Per Admitting Provider Arely Landin is a 38-year-old female who presents to the ER with shortness of breath and leg swelling. She reports progressive shortness of breath especially over the last 6 months for which she has been seeing pulmonology in [place]. She has had a diagnosis of COPD for the last 2 to 3 years diagnosed on lung function testing. She has had no hospitalizations for this. She notes that her inhalers are not helping with her shortness of breath. She also notes intermittent pounding of her heart's where she feels her heart goes slowly. The last time this happened was about a week ago. She notes 2 days of leg swelling. Associated symptoms significant for orthopnea, paroxysmal nocturnal dyspnea. No presyncope, syncope, claudication, palpitations. She denies any fevers, chills, cough, sinus pain, earache. She has a significant history of ankylosing spondylitis for which she is receiving Humira. She receives Humira every 2 weeks but notes her last dose was about a month ago due to difficulty obtaining it from the pharmacy. She has a significant history of opiate abuse from the age [age]. No prior IV drug use. She remains on monthly injections of buprenorphine (Sublocade). Admission Exam Per Admitting Provider Constitutional: well developed; + not well nourished and no acute distress Eyes: + anicteric sclerae; normal pupil size ENMT: external ear and nose normal, oropharynx normal Respiratory: normal respiratory effort, lungs clear to auscultation Cardiovascular: RRR, no murmur, no edema Gastrointestinal (Abdomen): normal bowel sounds, soft, nontender, no hepatosplenomegaly Skin: + erythema (mild diffuse rash on bilater al legs already significantly improved as above) Neurologic: moves all extremities and awake; not confused Psychiatric: A+Ox3, euthymic affect Principal Diagnosis Systemic Sarcoidosis? Discharge Exam General: Alert. Oriented to person, time, and place. Afebrile. No acute distress. Eyes: pupils equal and reactive to light bilaterally, extraocular movements intact. Cardiac: Regular rate and rhythm, no murmurs/rubs/gallops. Respiratory: Clear to auscultation bilaterally, no wheezes/rales/rhonchi. No increased work of breathing. Symmetrical chest rise. No respiratory distress. Abdomen: Soft, nontender, nondistended. Bowel sounds present. Lower Extremities: Mild bilateral LE swelling without pitting, no erythema, no deep calf tenderness Psych: Euthymic affect. Mood and affect congruence. Regular speech rate and content. Discharge Data Allergies Allergy/AdvReac Type Severity Reaction Status Date / Time morphine Allergy Unknown SEVERE Verified 05/10/23 11:50 MIGRANES & VOMITING escitalopram [From Lexapro] Allergy severe Verified 05/10/23 11:50 migraine and vomiting Consultations 05/08/23 16:26 ED Decision to Admit Stat 05/08/23 22:36 Consult Pulmonology Routine 05/09/23 07:23 Consult Nephrology Routine Procedures Performed Operation Date: 05/09/23 12:10 Actual Procedures p Endobronchial Ultrasound (EBUS)(Not Applicable) - Kni Luz MD Ordered Studies 05/08/23 12:31 CT angio chest PE protocol Stat 05/08/23 12:38 US venous doppler LE BI Stat 05/09/23 12:20 US renal/blad retro comp Routine Hospital Course (1) Sarcoidosis: New diagnosis with uncertain prognosis - Presumed diagnosis with hilar adenopathy, hypercalcemia and shortness of breath, but malignancy cannot be fully ruled out - Consulted pulmonology Endobronchial ultrasound with FNA + bronchoscopy yesterday -- Bronch wash and LN specimens taken; pending acid fast, bacterial and fungal cultures Consulted nephrology to evaluate/manage hypercalcemia due to possible sarcoidosis >Continue hydration after discharge >Renal US wo calculi, mass, or hydronephrosis >Hypercalcemia -- non-PTH mediated; hydration to manage hypercalcemia; serum MILAGROS and 24h urine calcium; will discharge with Prednisone 20mg daily or presumed Sarcoidosis until re-evaluated by pulmonology and PCP Consider outpatient PFTs and repeat imaging (2) Hypercalcemia: Acute, stable - Suspected due to sarcoidosis - Calcium 10.4 today (3) Pedal edema: Resolved - Resolved with Lasix - TTE: normal LV systolic function; EF 60-65%; no regional wall motion abnormalities Technically difficult study (4) Schizoaffective disorder: Chronic, stable - On Invega monthly injections - next dose due May 25 (5) Bipolar disorder: Chronic, stable - Continue bupropion, gabapentin, fluoxetine, Invega Plan Patient found to be stable and fot to be discharged today with close f/u with statistician theoretical and her PCP. Total Time Total Time Spent Total Time Spent (In Minutes): <30 Discharge Plan Discharge Items Patient Disposition: Home - Self-Care Reason For Visit: HYPERCALCEMIA, SHORTNESS OF BREATH, SARCOIDOSIS Discharge Diagnosis: Sarcoidosis Condition on Discharge: Fair Activity: Per Instructions section Non-emergency contact: Primary Care Provider and [facility] Call non-emergency contact if: your symptoms worsen Follow-up/Referrals: Kin Luz MD [Physician] - 05/15/23 1:45 pm (Follow up scheduled on 05/15/23 @ 1:45) Tao Rae [Primary Care Provider] - 05/17/23 1:00 pm (Follow up scheduled on 05/17/23 @ 1 pm in the [facility] Office. [address] [place] [address]) Diet: Low Sodium (2gm) Addtl Attending Provider Instructions: You were admitted to the hospital for management of progressive shortness of breath and lower extremity swelling. In the emergency department, you were found to have high levels of calcium, when in combination with your imaging findings, raised our concern for the possibility of Sarcoidosis. For this reason, you underwent a bronchoscopy and a few samples were taken to help us diagnose or rule this out. We will continue to wait for the results of these samples, and by the time of your follow up appointment with your statistician theoretical yo should be able to discuss these results. In the meantime, to manage the possible sarcoidosis, we will be sending out a script for Prednisone 20mg, which you should take daily. A discharge summary will be sent to your primary care physician to ensure continuity of care. Please bring this discharge summary with you to your next office appointment so that your provider can review it at that time. Follow-up appointments: Make a follow-up appointment with your PCP within the next week. It is very important that you follow up with them shortly after discharge from the hospital. Make a follow-up appointment with your Roving Winder within the next 1-2 weeks. It is very important that you follow up with them shortly after discharge from the hospital. Keep all your follow-up appointments as already scheduled. If you cannot make an appointment, notify your provider. Medications: Your medication list has been reviewed and reconciled upon discharge to ensure accuracy and continuity of care. An updated list of all your medications is included with your hospital discharge paperwork. Please review this list closely, and make note of any changes. If you have any issues filling these prescriptions, please call [phone] and ask to leave a message for Dr. Gutierrez. Take your medications as instructed; do not skip a dose of your medicines. Make sure all of your doctors know every medicine you are taking (including [id number] medicines, vitamins, and supplements). Call your primary care provider before taking any new medicines (including over- the-counter medicines, vitamins, and supplements), because some of these may interact with your current medications, or may make your symptoms worse. Tell your primary care provider if you cannot afford your medications. CONTACT YOUR PRIMARY CARE PROVIDER if you experience any of the following: Worsening of symptoms Fever, chills, or fatigue Difficulty following your treatment plan, or difficulty taking medications CALL 911 OR GO TO THE EMERGENCY DEPARTMENT if you experience any of the following: Sudden, severe abdominal pain or nausea/vomiting Severe chest pain, or chest pain that radiates (moves) to your jaw or arm Sudden, severe shortness of breath or difficulty breathing Thank you for allowing us to participate in your care. Pending Studies at Discharge: No Stand-Alone Forms: My [facility] [employer], Smoking Cessation Medications and DC Order Prescriptions: New prednisone 20 mg Tablet 20 mg PO DAILY Qty: 30 0RF Continued famotidine 40 mg tablet 40 mg PO QAM Trelegy Ellipta 100-62.5-25 mcg blister with device 1 ea INHALATION QAM gabapentin 600 mg tablet 600 mg PO TID Sublocade 100 mg/0.5 mL solution, extended rel syringe 100 mg SUBCUT MONTHLY Invega Sustenna 234 mg/1.5 mL syringe 234 mg IM MONTHLY rizatriptan 10 mg tablet 10 mg PO UD Rx Instructions: 1 tab 1 time may repeat after 2 hours if headache persists...max of 3 tab/day as needed bupropion HCl 75 mg tablet 75 mg PO QAM fluoxetine 20 mg capsule 20 mg PO QAM lactulose 10 gram/15 mL solution 30 ml PO Q OTHER DAY hydroxyzine HCl 50 mg tablet See Rx Instructions .ROUTE .COMPLEX Rx Instructions: take 1 tablet by mouth every morning and 1.5 tablets twice daily in the afternoon Humira(CF) Pen 40 mg/0.4 mL pen injector kit 40 mg SUBCUT .EVERY 2 WEEKS montelukast 10 mg tablet 10 mg PO HS cholecalciferol (vitamin D3) 50 mcg (2,000 unit) capsule 4,000 unit PO QAM Discharge Orders: Discharge Order (Routine); Ordered 05/10/23 Ordered By: Deisi Gutierrez Admission Data Admit Date/Time: 05/08/23 17:28 Attending Provider: Reilly Birch Admit Provider: Oskar Guillaume Primary Care Provider: Tao Rae Other Providers: Oskar Guillaume; Kin Luz; Desmond Acosta; Puma Prescott Kevin C.; Jackie Houston Supervising Physician Co-Signing Physician Notes I personally examined the patient and verified all hkan points of history and exam, discussed case, and agree with decision making with Dr Gutierrez feeling OK. fortunately does not appear to need O2. d/w pulmonary. 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 24hr urine collection underway. -home today, close outpt pulmonary, nephro, PCP f/u otherwise as above Resident Activity Tracking Resident Involvement: Resident Care Provided Care Provided: Adult Hospital Medicine
--- NOTE | 2023-05-10 13:28 | Billing Data ---
Date of Service May 10, 2023 Coding Level of Care Code 45224 IN/OBS DISCH 30 MIN/LESS
== END 2023-05-10 16:26 | disposition home or self-care (01) | DRG 167 ==
LOC: ED 11:27 → EDINP 17:28 → INTOOBSV 17:28 → SUATTDRO 17:28 → 2S 21:05

== ENCOUNTER 2023-09-21 12:55 | Inpatient (IN) ==
--- NOTE | 2023-09-21 13:24 | Emergency Department Note ---
Impression & Plan Hypotension, Tachycardia, Hyperglycemia, Somnolence, Acute dehydration, Elevated lactic acid level, JESSICA (acute kidney injury), Hypomagnesemia ED Provider Note NAME: EARL ARAUJO AGE: 38 SEX: F : 1985 ARRIVES VIA: Walk-In INFORMANT: [Patient][mother] ED PROVIDER(S): [Keith Oliver MD] CHIEF COMPLAINT: Illness HISTORY OF PRESENT ILLNESS: The patient is a 38-year-old female who has not been herself for about 2 weeks. She had some dry heaving last night. She has been complaining of pain and weakness. Today, she was too weak to stand. She had pain all over. She was brought to the hospital for evaluation. Her mother is at bedside. In triage, the patient's blood pressure was low in the 60s to 70s systolic. She was tachycardic and she had a low O2 saturation. The patient does have sarcoidosis. She does not wear oxygen at home. As per the mother, there has been no fever, no diarrhea, no rash. She has not been coughing, there has been no nasal congestion. PMHx/PSHx/Social Hx: See Below PHYSICAL EXAM: GENERAL: Patient is in no acute distress. HEENT: No acute trauma, normocephalic atraumatic, mucous membranes moist, no nasal congestion. NECK: No stridor, no adenopathy, no meningismus, trachea is midline. LUNGS: Clear to auscultation bilaterally when listening anterior, no wheeze, no rhonchi, breath sounds equal. HEART: Tachycardic, regular rhythm, no murmurs. ABDOMEN: Soft, nontender, no peritonitis. Obese. EXTREMITIES: No cyanosis, full range of motion of all the joints without pain or difficulty. NEUROLOGIC: Oriented x 3, no acute motor or sensory deficits, no focal weakness. Seems sleepy SKIN: No jaundice, no diaphoresis. DIFFERENTIAL DIAGNOSIS: Sepsis or bacteremia, UTI, pneumonia, viral illness, dehydration, renal or liver failure, among others. EMERGENCY DEPARTMENT PROCEDURES: MEDICAL DECISION MAKING: There is no leukocytosis or concerning anemia. There is a normal platelet count. No coagulopathy. ABG does show a slight acidosis. No CO2 retention. Renal panel testing shows dehydration with acute kidney injury. The magnesium was low at 1.3. Glucose was elevated at almost 600--the patient does not carry a history of diabetes. Lactic acid level was elevated at 4 consistent with infection and/or dehydration. There were some subtle liver enzyme elevation seen. ECG shows sinus tachycardia, no obvious ischemia. Cardiac enzyme testing x 1 was somewhat elevated. This troponin elevation could be secondary to mismatch and/or cardiac injury. Urinalysis showed some dehydration, no infection. Respiratory bio fire was positive for rhinovirus. Chest film does not show pneumonia or CHF. Brain CT showed no acute bleed or mass effect. CT of the abdomen pelvis did not show any acute surgical finding, no bowel obstruction. The patient presented tachycardic, somnolent and hypotensive. She was aggressively managed. The patient was given 2 L of IV saline. This should suffice for 30 cc/kg of saline per sepsis protocol based on her ideal body weight. She received IV cefepime as antibiotic coverage. She received IV insulin for the higher blood sugar. She was given IV magnesium. She received IV Zofran for nausea. The patient has shown improvement with the above treatment. Her blood pressure is now over 100 systolic. The heart rate has decreased. She is more awake and interactive. The patient is in need of a hospital stay. She does meet criteria for sepsis although, I have no bacterial source identified at this point. I did speak with the patient and the mother, I spoke with case management, the on-call hospitalist was consulted. Prior/Outside records/notes reviewed: None ECG per my interpretation: Indication was tachycardia. The ECG shows a sinus tachycardia with a rate of 112. There is some nonspecific ST change. There is no acute ST elevation. There is poor R wave progression. No PVCs. The QTc is 480. Continuous Cardiac Monitoring per my interpretation: An order was placed for continuous cardiac monitoring. The monitor shows a rate of 115 with sinus tachycardia. Imaging/x-ray results per my interpretation: Chest x-ray does not show mediastinal widening, pneumonia or pneumothorax. Chronic Medical/Social conditions affecting care: Care/Management discussed with: Case management, the on-call hospitalist. Level of care consideration(s): After review of the information above and other included data: --I believe the patient requires escalation of care to admission Critical Care Note: I have personally spent 51 minutes of critical care time in the direct management of this patient. This includes bedside care, interpretation of diagnostic studies, and testing, discussion with consultants, patient, and family members, and other required patient management activities. This 51 minutes is in excess of all separately billable procedures. DISPOSITION: Admission Past Med/Surg History Medical History Schizoaffective disorder DREW (obstructive sleep apnea) COPD (chronic obstructive pulmonary disease) Sarcoidosis SOB (shortness of breath) Vitamin D deficiency Acute kidney injury Hypercalcemia Renal impairment Encounter for pre-operative examination Cellulitis Pedal edema Hilar adenopathy Bipolar disorder Hypothyroidism Social History Smoking Status: Never smoker Tobacco Type: Cigarettes and E-cigarettes / Vaping Cigarettes Per Day: smoked for years but quit, vaped for years but quit 2-3 years ago; Do You Dip or Chew Tobacco: No; Hx Alcohol Use: No 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, Sublocade now) Preferred Language: Chinese Communication Ability: Effective Social Worker Aide Required: No Beliefs That Will Affect Care: None Current Living Situation: Other Current Living Situation Comment: lives with 3 kids age 12-20 Feels Safe at Home: Yes Assistive Devices: None Allergies Allergies Allergy/AdvReac Type Severity Reaction Status Date / Time morphine AdvReac Unknown SEVERE Verified 09/21/23 15:44 MIGRANES & VOMITING escitalopram [From Lexapro] AdvReac severe Verified 09/21/23 15:44 migraine and vomiting Home Meds Home Medications Medication Instructions Recorded Confirmed adalimumab 40 mg/0.4 mL 40 mg subcut .EVERY 2 WEEKS 05/08/23 09/21/23 subcutaneous pen kit (Humira(CF) Pen) buprenorphine 100 mg/0.5 mL 100 mg subcut MONTHLY 05/08/23 09/21/23 solution,exten.rel.subcutaneous syringe (Sublocade) bupropion HCl 75 mg tablet 75 mg PO .Q NOON 05/08/23 09/21/23 cholecalciferol (vitamin D3) 50 4,000 unit PO QAM 05/08/23 09/21/23 mcg (2,000 unit) capsule famotidine 40 mg tablet 40 mg PO QAM 05/08/23 09/21/23 fluoxetine 20 mg capsule 20 mg PO QAM 05/08/23 09/21/23 gabapentin 600 mg tablet 600 mg PO TID 05/08/23 09/21/23 hydroxyzine HCl 50 mg tablet See Rx Instructions .Route .COMPLEX 05/08/23 09/21/23 lactulose 10 gram/15 mL oral 30 ml PO Q OTHER DAY PRN .. 05/08/23 09/21/23 solution montelukast 10 mg tablet 10 mg PO HS 05/08/23 09/21/23 paliperidone palmitate 234 mg/1.5 234 mg IM MONTHLY 05/08/23 09/21/23 mL intramuscular syringe (Invega Sustenna) rizatriptan 10 mg tablet 10 mg PO UD 05/08/23 09/21/23 aripiprazole 20 mg tablet 20 mg PO DAILY 09/21/23 09/21/23 bupropion HCl 300 mg 24 hr tablet, 300 mg PO QAM 09/21/23 09/21/23 extended release Previous Rx's Medication Instructions Recorded CPAP Machine 1 ea .Route ONCE #1 ea 07/25/23 folic acid 1 mg tablet 1 mg PO DAILY #30 tabs 07/30/23 methotrexate sodium 2.5 mg tablet 10 mg (4 x 2.5 mg) PO .weekly #16 08/06/23 tabs prednisone 5 mg tablet 5 mg PO DAILY 4 weeks #28 tabs 09/06/23 Results & Data (ED) Vital Signs Vital Signs - 24 hr 09/21/23 12:58 09/21/23 13:16 09/21/23 13:31 Temperature 36.3 C L Temperature Source Temporal Artery Scan Pulse Rate 131 H 114 H Pulse Rate [Apical] 98 H Pulse Rhythm Pulse Rhythm [Apical] Regular Pulse Strength [Apical] Respiratory Rate 18 18 Respiratory Effort / Characteristics Non-Labored Non-Labored Respiratory Depth Normal Normal Respiratory Pattern Regular Blood Pressure 61/34 L Blood Pressure [Right Arm] 92/41 L Blood Pressure Mean 43 Blood Pressure Mean [Right Arm] 58 Blood Pressure Position [Right Arm] Pulse Oximetry 95 98 Oxygen Delivery Method Room Air Nasal Cannula Oxygen Flow Rate 3 Sepsis Recent Fever Within 48 Hours No Sepsis New/Unexplained Change in Mental Status No Sepsis Action Taken by Nursing No Action Required 09/21/23 13:33 09/21/23 14:00 09/21/23 14:15 Temperature Temperature Source Pulse Rate 114 H Pulse Rate [Apical] 103 H 104 H Pulse Rhythm Regular Pulse Rhythm [Apical] Regular Regular Pulse Strength [Apical] Respiratory Rate 18 18 20 Respiratory Effort / Characteristics Non-Labored Non-Labored Respiratory Depth Normal Normal Respiratory Pattern Regular Regular Blood Pressure Blood Pressure [Right Arm] 92/49 L 94/53 L Blood Pressure Mean Blood Pressure Mean [Right Arm] 63 66 Blood Pressure Position [Right Arm] Pulse Oximetry 95 95 95 Oxygen Delivery Method Room Air Nasal Cannula Nasal Cannula Oxygen Flow Rate 3 3 Sepsis Recent Fever Within 48 Hours Sepsis New/Unexplained Change in Mental Status Sepsis Action Taken by Nursing 09/21/23 14:30 09/21/23 14:45 09/21/23 15:20 Temperature Temperature Source Pulse Rate Pulse Rate [Apical] 105 H 103 H Pulse Rhythm Pulse Rhythm [Apical] Regular Pulse Strength [Apical] Normal Respiratory Rate 21 22 Respiratory Effort / Characteristics Non-Labored Non-Labored Spontaneous Respiratory Depth Normal Normal Respiratory Pattern Regular Regular Blood Pressure Blood Pressure [Right Arm] 108/65 113/47 L 89/48 L Blood Pressure Mean Blood Pressure Mean [Right Arm] 79 69 61 Blood Pressure Position [Right Arm] Lying Pulse Oximetry 95 93 Oxygen Delivery Method Nasal Cannula Room Air Oxygen Flow Rate 3 Sepsis Recent Fever Within 48 Hours Sepsis New/Unexplained Change in Mental Status Sepsis Action Taken by Half-Way Medications Current Medication List: was personally reviewed by me Laboratory Data Attestation: I reviewed the patient's lab results. 09/21/23 13:18 09/21/23 13:18 Lab Results 09/21/23 09/21/23 09/21/23 Range/Units 13:18 13:20 13:30 WBC 10.39 (4.8-10.8) K/ul RBC 5.31 (4.20-5.40) M/uL Hgb 13.1 (12.0-16.0) g/dl Hct 42.7 (37.0-47.0) % MCV 80.4 (80.0-100.0) fL MCH 24.7 L (25.0-34.0) pg MCHC 30.7 L (32.0-36.0) g/dL RDW Std Deviation 40.8 (36.4-46.3) fL RDW Coeff of Shelley 13.9 (11.5-14.5) % Plt Count 209 (130-400) K/uL MPV 11.3 (9.4-12.4) fL Immature Gran % (Auto) 1.2 % Neut % (Auto) 84.1 % Lymph % (Auto) 10.4 % [place] % (Auto) 3.2 % Eos % (Auto) 0.7 % Baso % (Auto) 0.4 % Neut # (Auto) 8.75 H (1.40-6.50) K/uL Lymph # (Auto) 1.08 L (1.20-3.40) K/uL [place] # (Auto) 0.33 (0.11-0.59) K/uL Eos # (Auto) 0.07 (0.00-0.50) K/uL Baso # (Auto) 0.04 (0.00-0.20) K/uL Immature Gran # (Auto) 0.12 (0.01-0.20) K/uL PT 11.9 (9.0-12.0) Seconds INR 1.1 (0.9-1.1) APTT 28 (21-31) Seconds PTT Ratio 1.0 ABG pH (7.35-7.45) ABG pCO2 (35-46) mmHg ABG pO2 (80-95) mmHg ABG HCO3 (19-24) mmol/L ABG O2 Saturation (90-95) % ABG Base Excess (-9-1.8) mEq/L Charan Test (Pos) Oxygen Given Sodium 132 L (136-145) mmol/L Potassium 4.4 (3.5-5.1) mmol/L Chloride 93 L (98-107) mmol/L Carbon Dioxide 24 (21-32) mmol/L Anion Gap 15 H (3-11) BUN 21 (6-23) mg/dl Creatinine 2.86 H (0.6-1.2) mg/dl Est Cr Clr Drug Dosing 33.4 ml/min Est GFR ( Amer) 23.1 ml/min Est GFR (Non-Af Amer) 19.9 ml/min BUN/Creatinine Ratio 7.3 L (10-20) Glucose 583 H* (70-99(Fasting)) mg/dl POC Glucose (70-99) mg/dl Lactate 4.0 H* (0.4-2.0) mmol/L Calcium 9.6 (8.6-10.3) mg/dl Magnesium 1.3 L (1.7-2.4) mg/dl Total Bilirubin 1.8 H (0.2-1.0) mg/dl Direct Bilirubin 1.0 H (0-0.2) mg/dl AST 88 H (13-39) U/L ALT 74 H (7-52) U/L Alkaline Phosphatase 132 H (34-104) U/L Troponin I High Sens 27.5 H (0-14) pg/ml Total Protein 7.2 (6.0-8.3) gm/dl Albumin 4.3 (3.4-5.0) gm/dl Lipase 21 (11-82) U/L Procalcitonin 22.80 H (0-0.5) ng/ml Urine Color Dark Yellow Urine Appearance Clear (Clear) Urine pH 5.0 (4.5-7.5) Ur Specific [place] 1.026 (1.000-1.030) Urine Protein 1+ H (Negative) Urine Glucose (UA) 3+ H (Negative) Urine Ketones Trace H (Negative) Urine Blood Negative (Negative) Urine Nitrite Negative (Negative) Urine Bilirubin Negative (Negative) Urine Urobilinogen Negative (Negative) Ur Leukocyte Esterase Trace H (Negative) Urine WBC (Auto) 6-10 H (0-5) /hpf Urine RBC (Auto) 0-2 (0-2) /hpf U Hyaline Cast (Auto) 0-2 (0-2) /lpf U Epithel Cells (Auto) 0-2 (0-2) /hpf Urine Bacteria (Auto) None Seen (None Seen) Adenovirus (PCR) Not Detected (NotDetected) B. pertussis DNA (PCR) Not Detected (NotDetected) B.parapertussis DNA PCR Not Detected (NotDetected) C. pneumoniae DNA (PCR) Not Detected (NotDetected) Coronavirus OC43 (PCR) Not Detected (NotDetected) Coronavirus HKU1 (PCR) Not Detected (NotDetected) Coronavirus 229E (PCR) Not Detected (NotDetected) SARS-CoV-2 (PCR) Not Detected (NotDetected) Coronavirus NL63 (PCR) Not Detected (NotDetected) Human Metapneumovir PCR Not Detected (NotDetected) Influenza Type A (PCR) Not Detected (NotDetected) Influenza Type B (PCR) Not Detected (NotDetected) M. pneumoniae (PCR) Not Detected (NotDetected) Parainfluenza 1 (PCR) Not Detected (NotDetected) Parainfluenza 2 (PCR) Not Detected (NotDetected) Parainfluenza 3 (PCR) Not Detected (NotDetected) Parainfluenza 4 (PCR) Not Detected (NotDetected) RSV (PCR) Not Detected (NotDetected) Entero/Rhino (PCR) DETECTED A (NotDetected) 09/21/23 09/21/23 09/21/23 Range/Units 14:17 15:01 15:23 WBC (4.8-10.8) K/ul RBC (4.20-5.40) M/uL Hgb (12.0-16.0) g/dl Hct (37.0-47.0) % MCV (80.0-100.0) fL MCH (25.0-34.0) pg MCHC (32.0-36.0) g/dL RDW Std Deviation (36.4-46.3) fL RDW Coeff of Shelley (11.5-14.5) % Plt Count (130-400) K/uL MPV (9.4-12.4) fL Immature Gran % (Auto) % Neut % (Auto) % Lymph % (Auto) % [place] % (Auto) % Eos % (Auto) % Baso % (Auto) % Neut # (Auto) (1.40-6.50) K/uL Lymph # (Auto) (1.20-3.40) K/uL [place] # (Auto) (0.11-0.59) K/uL Eos # (Auto) (0.00-0.50) K/uL Baso # (Auto) (0.00-0.20) K/uL Immature Gran # (Auto) (0.01-0.20) K/uL PT (9.0-12.0) Seconds INR (0.9-1.1) APTT (21-31) Seconds PTT Ratio ABG pH 7.29 L (7.35-7.45) ABG pCO2 46 (35-46) mmHg ABG pO2 61 L (80-95) mmHg ABG HCO3 22 (19-24) mmol/L ABG O2 Saturation 91.7 (90-95) % ABG Base Excess -4.6 (-9-1.8) mEq/L Charan Test Pos (Pos) Oxygen Given 2.5 L Sodium (136-145) mmol/L Potassium (3.5-5.1) mmol/L Chloride (98-107) mmol/L Carbon Dioxide (21-32) mmol/L Anion Gap (3-11) BUN (6-23) mg/dl Creatinine (0.6-1.2) mg/dl Est Cr Clr Drug Dosing ml/min Est GFR ( Amer) ml/min Est GFR (Non-Af Amer) ml/min BUN/Creatinine Ratio (10-20) Glucose (70-99(Fasting)) mg/dl POC Glucose 475 H* (70-99) mg/dl Lactate 3.7 H* (0.4-2.0) mmol/L Calcium (8.6-10.3) mg/dl Magnesium (1.7-2.4) mg/dl Total Bilirubin (0.2-1.0) mg/dl Direct Bilirubin (0-0.2) mg/dl AST (13-39) U/L ALT (7-52) U/L Alkaline Phosphatase (34-104) U/L Troponin I High Sens 25.8 H (0-14) pg/ml Total Protein (6.0-8.3) gm/dl Albumin (3.4-5.0) gm/dl Lipase (11-82) U/L Procalcitonin (0-0.5) ng/ml Urine Color Urine Appearance (Clear) Urine pH (4.5-7.5) Ur Specific [place] (1.000-1.030) Urine Protein (Negative) Urine Glucose (UA) (Negative) Urine Ketones (Negative) Urine Blood (Negative) Urine Nitrite (Negative) Urine Bilirubin (Negative) Urine Urobilinogen (Negative) Ur Leukocyte Esterase (Negative) Urine WBC (Auto) (0-5) /hpf Urine RBC (Auto) (0-2) /hpf U Hyaline Cast (Auto) (0-2) /lpf U Epithel Cells (Auto) (0-2) /hpf Urine Bacteria (Auto) (None Seen) Adenovirus (PCR) (NotDetected) B. pertussis DNA (PCR) (NotDetected) B.parapertussis DNA PCR (NotDetected) C. pneumoniae DNA (PCR) (NotDetected) Coronavirus OC43 (PCR) (NotDetected) Coronavirus HKU1 (PCR) (NotDetected) Coronavirus 229E (PCR) (NotDetected) SARS-CoV-2 (PCR) (NotDetected) Coronavirus NL63 (PCR) (NotDetected) Human Metapneumovir PCR (NotDetected) Influenza Type A (PCR) (NotDetected) Influenza Type B (PCR) (NotDetected) M. pneumoniae (PCR) (NotDetected) Parainfluenza 1 (PCR) (NotDetected) Parainfluenza 2 (PCR) (NotDetected) Parainfluenza 3 (PCR) (NotDetected) Parainfluenza 4 (PCR) (NotDetected) RSV (PCR) (NotDetected) Entero/Rhino (PCR) (NotDetected) Administered Medications Insulin Human Regular 250 (units/ Sodium Chloride) 250 mls @ 10 mls/hr IV .[facility]; Protocol Stop: 10/21/23 15:44 Last Admin: 09/21/23 16:43 Dose: 10 units/hr, 10 mls/hr Documented By: TYRONE Co-signed By: CA Potassium Chloride/Sodium Chloride (1/2 Nss + 20meq Kcl 1000ml) 20 meq in 1,000 mls @ 150 mls/hr IV .Q6H40M CHINYERE Stop: 10/21/23 15:44 Last Admin: 09/21/23 16:46 Dose: 150 mls/hr Documented By: TYRONE Discontinued Medications Hydrocortisone Sodium Succinate (Hydrocortisone Sod Succinate 100 Mg/2 Ml Vial) 100 mg IV NOW STA Stop: 09/21/23 14:46 Last Admin: 09/21/23 15:11 Dose: 100 mg Documented By: TYRONE Sodium Chloride (Nss) 1,000 mls @ 999 mls/hr IV .Q1H1M CHINYERE Stop: 09/21/23 14:30 Last Infusion: 09/21/23 14:37 Dose: Infused Documented By: Admin: 09/21/23 13:28 Dose: 999 mls/hr Documented By: CECILLE Cefepime HCl (Maxipime) 2,000 mg in 20 mls @ 5 mls/min IV NOW STA; Protocol Stop: 09/21/23 13:19 Last Admin: 09/21/23 13:38 Dose: 5 mls/min Documented By: CECILLE Sodium Chloride (Nss) 1,000 mls @ 999 mls/hr IV .Q1H1M ONE Stop: 09/21/23 14:42 Last Infusion: 09/21/23 15:03 Dose: Infused Documented By: Admin: 09/21/23 13:46 Dose: 999 mls/hr Documented By: CECILLE Magnesium Sulfate/Dextrose (Magnesium Sulfate / D5w) 1 gm in 100 mls @ 100 mls/hr IV Q1H CHINYERE Stop: 09/21/23 16:10 Last Infusion: 09/21/23 16:50 Dose: Infused Documented By: Admin: 09/21/23 15:57 Dose: 100 mls/hr Documented By: Infusion: 09/21/23 15:37 Dose: Infused Documented By: Admin: 09/21/23 14:37 Dose: 100 mls/hr Documented By: CECILLE Lactated Ringer's (Lr) 1,000 mls @ 999 mls/hr IV .Q1H1M ONE Stop: 09/21/23 15:56 Last Infusion: 09/21/23 16:50 Dose: Infused Documented By: Admin: 09/21/23 15:14 Dose: 999 mls/hr Documented By: TYRONE Insulin Human Regular (Novolin-R Insulin Per Unit Charge) 10 units IV NOW STA Stop: 09/21/23 14:10 Last Admin: 09/21/23 14:37 Dose: 10 units Documented By: CECILLE Co-signed By: SHERRY Insulin Human Regular (Novolin-R Bolus From Bag) 10 units IV NOW ONE Stop: 09/21/23 15:46 Last Admin: 09/21/23 16:44 Dose: 10 units Documented By: TYRONE Co-signed By: CA Ondansetron HCl (Ondansetron Inj 2 Mg/Ml 2 Ml Vial) 4 mg IV NOW STA Stop: 09/21/23 13:17 Last Admin: 09/21/23 13:38 Dose: 4 mg Documented By: CECILLE Imaging Data Radiologist's Impression: Chest X-Ray 09/21/23 13:16 SINGLE VIEW CHEST CLINICAL HISTORY: Sepsis. FINDINGS: An AP, portable, upright chest radiograph is compared to study dated 05/09/2023 and correlated with chest CT dated 06/19/2023. The heart is enlarged. The pulmonary vasculature is noncongested. Chronic interstitial thickening is similar to previous. Scarring/atelectasis is noted at the lung bases. No airspace consolidation or large pleural effusion is identified. No pneumothorax is seen. There are chronic/healed right-sided rib fractures. IMPRESSION: Cardiomegaly with no acute cardiopulmonary abnormality identified. ACT 112: Negative or not required by law. Electronically signed by: Keith Bingham M.D. 09/21/2023 2:14 PM Abdomen/Pelvis CT 09/21/23 14:[address] WITHOUT CONTRAST CT DOSE: 2272.56 mGy.cm HISTORY: Acutely altered mental status with elevated LFTs altered, elev lfts TECHNIQUE: Multiaxial CT images of the abdomen and pelvis were performed without contrast. A dose lowering technique was utilized adhering to the principles of ALARA. COMPARISON STUDY: Chest CT 06/19/2023 FINDINGS: Heart is enlarged. Mediastinal and subcarinal lymphadenopathy redemonstrated. Trace pleural effusions with dependent bibasilar consolidation and intralobular septal thickening. No free air. The liver is enlarged measuring up to 28 cm in length. Severe hepatic steatosis. Cholecystectomy. Spleen is enlarged, 15.2 cm. Unremarkable pancreas and adrenal glands. Mildly enlarged periesophageal lymph nodes measure up to 1.2 cm. There are additional mildly enlarged periportal lymph nodes. Nonobstructing bilateral nephrolithiasis measure up to approximately 4 mm bilaterally. No ureteral calculi or hydronephrosis. Decompressed urinary bladder with Russell catheter in place. Hysterectomy with air in the vaginal cuff. Unremarkable aorta. No bowel obstruction or bowel wall thickening. Normal appendix. No acute fracture. IMPRESSION: 1. Cardiomegaly with suggestion of mild pulmonary edema. Trace pleural effusions with bibasilar opacities suggest atelectasis. A mild pneumonitis could appear similarly. 2. No bowel obstruction or bowel wall thickening. 3. Hepatosplenomegaly with hepatic steatosis. 4. Thoracic and upper mediastinal lymphadenopathy redemonstrated. 5. Nonobstructing bilateral nephrolithiasis. No ureteral calculi or hydronephrosis. ACT 112: Negative or not required by law. The above report was generated using voice recognition software. It may contain grammatical, syntax or spelling errors. Electronically signed by: Rafal Rao M.D. 09/21/2023 3:[address] 09/21/23 14:11 CT head/brain wo con CLINICAL HISTORY: 38 years-old Female with confused. Acutely altered mental status TECHNIQUE: Multiple axial CT images of the head were obtained without contrast. A dose lowering technique was utilized adhering to the principles of ALARA. COMPARISON: None. FINDINGS: No acute intracranial hemorrhage, midline shift, intracranial mass, hydrocephalus, territorial ischemia or abnormal extra-axial collection. The calvarium is intact. Minimal mucosal thickening of the paranasal sinuses. Mastoid air cells are clear. Unremarkable soft tissues and orbits. IMPRESSION: No acute intracranial abnormality. ACT 112: Negative or not required by law. The above report was generated using voice recognition software. It may contain grammatical, syntax or spelling errors. Electronically signed by: Rafal Rao M.D. 09/21/2023 3:12 PM Discharge Plan Visit Data Chief Complaint: Pain (Generalized) Stated Complaint: LEGS GIVING OUT, WEAK, COULDN'T MOVE ED Provider: Keith Oliver Discharge Problem: Hypotension, Tachycardia, Hyperglycemia, Somnolence, Acute dehydration, Elevated lactic acid level, JESSICA (acute kidney injury), Hypomagnesemia Patient Disposition: Admitted As Inpatient Condition: Serious Discharge Instructions Interventions: ED Discharge Assessment Last Done: 09/21/23 17:35 Discharge Problem: Hypotension Qualifiers: Hypotension type: unspecified hypotension type Qualified Code(s): I95.9 - Hypotension, unspecified
[2023-09-21] MEDS: SODIUM CHLORIDE 0.9% 1,000 ML IV SCH (13:28)
[2023-09-21] MEDS: ONDANSETRON INJ 2 MG/ML 2 ML VIAL IV STA (13:38)
[2023-09-21] MEDS: CEFEPIME 2,000 MG/20 ML VIAL IV STA (13:38)
[2023-09-21 13:43] LABS: Basophils # (auto) 0.04 K/uL (0.00-0.20); Basophils % (auto) 0.4 %; Eosinophils # (auto) 0.07 K/uL (0.00-0.50); Eosinophils % (auto) 0.7 %; Hematocrit (blood only) 42.7 % (37.0-47.0); Hemoglobin 13.1 g/dl (12.0-16.0); Immature Granulocytes # (auto) 0.12 K/uL (0.01-0.20); Immature Granulocytes % (auto) 1.2 %; Lymphocytes # (auto) 1.08 K/uL (1.20-3.40); Lymphocytes % (auto) 10.4 %; Mean Corpuscular Hemoglobin 24.7 pg (25.0-34.0); Mean Corpuscular Hgb Conc 30.7 g/dL (32.0-36.0); Mean Corpuscular Volume 80.4 fL (80.0-100.0); Mean Platelet Volume 11.3 fL (9.4-12.4); Monocytes # (auto) 0.33 K/uL (0.11-0.59); Monocytes % (auto) 3.2 %; Neutrophils # (auto) 8.75 K/uL (1.40-6.50); Neutrophils % (auto) 84.1 %; Platelet Count 209 K/uL (130-400); RDW Coefficient of Variation 13.9 % (11.5-14.5); RDW Standard Deviation 40.8 fL (36.4-46.3); Red Blood Count 5.31 M/uL (4.20-5.40); White Blood Count 10.39 K/ul (4.8-10.8)
[2023-09-21] MEDS: SODIUM CHLORIDE 0.9% 1,000 ML IV ONE (13:46)
[2023-09-21 13:48] LABS: Appearance Urine Clear (Clear); Bacteria Urine Automated None Seen (None Seen); Bilirubin Urine Negative (Negative); Blood Urine Negative (Negative); Cast Urine Automated 0-2 /lpf (0-2); Color Urine Dark Yellow; Epithelial Cell Urine Auto 0-2 /hpf (0-2); Glucose Urine UA 3+ (Negative); Ketones Urine Trace (Negative); Leukocyte Esterase Urine Trace (Negative); Nitrite Urine Negative (Negative); Protein Urine 1+ (Negative); RBC Urine Automated 0-2 /hpf (0-2); Specific Gravity Urine 1.026 (1.000-1.030); Urobilinogen Urine Negative (Negative)
[2023-09-21 13:50] LABS: INR 1.1 (0.9-1.1); Partial Thromboplastin Time 28 Seconds (21-31); Prothrombin Time 11.9 Seconds (9.0-12.0)
[2023-09-21 14:09] LABS: Albumin Level 4.3 gm/dl (3.4-5.0); BUN Creatinine Ratio 7.3 (10-20); Bilirubin,Total 1.8 mg/dl (0.2-1.0); Calcium 9.6 mg/dl (8.6-10.3); Creatinine Clr Calc Pharmacy 33.4 ml/min; Est GFR (African American) 23.1 ml/min; Est GFR (Non-African American) 19.9 ml/min; Magnesium 1.3 mg/dl (1.7-2.4); Potassium 4.4 mmol/L (3.5-5.1); Total Protein 7.2 gm/dl (6.0-8.3); Troponin I High Sensitivity 27.5 pg/ml (0-14)
--- NOTE | 2023-09-21 14:15 | XRay Report ---
SINGLE VIEW CHEST CLINICAL HISTORY: Sepsis. FINDINGS: An AP, portable, upright chest radiograph is compared to study dated 05/09/2023 and correla kendrick with chest CT dated 06/19/2023. The heart is enlarged. The pulmonary vasculature is noncongested. Chronic interstitial thickening is similar to previous. Scarring/atelectasis is noted at the lung bas es. No airspace consolidation or large pleural effusion is identified. No pneumothorax is seen. There are chronic/healed right-sided rib fractures. IMPRESSION: Cardiomegaly with no acute cardiopulmonary abnormality identified. ACT 112: Negative or not required by law. Electronically signed by: Keith Bingham M.D. 09/21/2023 2:14 PM
[2023-09-21 14:25] LABS: Base Excess ABG -4.6 mEq/L (-9-1.8); HCO3 ABG 22 mmol/L (19-24); Oxygen Saturation ABG 91.7 % (90-95); PCO2 ABG 46 mmHg (35-46); PO2 ABG 61 mmHg (80-95); pH ABG 7.29 (7.35-7.45)
[2023-09-21 14:32] LABS: Allen Test Pos (Pos)
[2023-09-21 14:36] LABS: Adenovirus PCR Not Detected (NotDetected); Bordetella parapertussis PCR Not Detected (NotDetected); Bordetella pertussis PCR Not Detected (NotDetected); Chlamydia pneumoniae PCR Not Detected (NotDetected); Coronavirus 229E PCR Not Detected (NotDetected); Coronavirus CoV-2 (COVID19)PCR Not Detected (NotDetected); Coronavirus HKU1 PCR Not Detected (NotDetected); Coronavirus NL63 PCR Not Detected (NotDetected); Coronavirus OC43PCR Not Detected (NotDetected); Human Metapneumovirus PCR Not Detected (NotDetected); Influenza A PCR Not Detected (NotDetected); Influenza B PCR Not Detected (NotDetected); Mycoplasma pneumoniae PCR Not Detected (NotDetected); Parainfluenza Virus 1 PCR Not Detected (NotDetected); Parainfluenza Virus 2 PCR Not Detected (NotDetected); Parainfluenza Virus 3 PCR Not Detected (NotDetected); Parainfluenza Virus 4 PCR Not Detected (NotDetected); Respiratory Syncytial VirusPCR Not Detected (NotDetected); Rhinovirus/Enterovirus PCR DETECTED (NotDetected)
[2023-09-21] MEDS: NovoLIN-R INSULIN PER UNIT CHARGE IV STA (14:37)
[2023-09-21] MEDS: MAGNESIUM SULFATE / D5W 1 GM/100 ML BAG IV SCH ×2 (14:37→19:27)
--- NOTE | 2023-09-21 15:05 | CT Scan Report ---
ABDOMEN AND PELVIS CT WITHOUT CONTRAST CT DOSE: 2272.56 mGy.cm HISTORY: Acutely altered mental status with elevated LFTs altered, elev lfts TECHNIQUE: Multiaxial CT images of the abdomen and pelvis were performed without contrast. A dose lo wering technique was utilized adhering to the principles of ALARA. COMPARISON STUDY: Chest CT 06/19/2023 FINDINGS: Heart is enlarged. Mediastinal and subcarinal lymphadenopathy redemonstrated. Trace pleural effusions with dependent bibasilar consolidation and intralobular septal thickening. No free air. The liver is enlarged measuring up to 28 cm in length. Severe hepatic steatosis. Cholecystectomy. Spl een is enlarged, 15.2 cm. Unremarkable pancreas and adrenal glands. Mildly enlarged periesophageal ly mph nodes measure up to 1.2 cm. There are additional mildly enlarged periportal lymph nodes. Nonobstructing bilateral nephrolithiasis measure up to approximately 4 mm bilaterally. No ureteral ca lculi or hydronephrosis. Decompressed urinary bladder with Russell catheter in place. Hysterectomy with air in the vaginal cuff. Unremarkable aorta. No bowel obstruction or bowel wall thickening. Normal a ppendix. No acute fracture. IMPRESSION: 1. Cardiomegaly with suggestion of mild pulmonary edema. Trace pleural effusions with bibasilar opaci ties suggest atelectasis. A mild pneumonitis could appear similarly. 2. No bowel obstruction or bowel wall thickening. 3. Hepatosplenomegaly with hepatic steatosis. 4. Thoracic and upper mediastinal lymphadenopathy redemonstrated. 5. Nonobstructing bilateral nephrolithiasis. No ureteral calculi or hydronephrosis. ACT 112: Negative or not required by law. The above report was generated using voice recognition software. It may contain grammatical, syntax o r spelling errors. Electronically signed by: Rafal Rao M.D. 09/21/2023 3:04 PM
[2023-09-21] MEDS: HYDROCORTISONE SOD SUCCINATE 100 MG/2 ML VIAL IV STA (15:11)
--- NOTE | 2023-09-21 15:12 | History & Physical Report ---
Date of Service September 21, 2023 Assessment & Plan (1) Sepsis: Plan: Only source found - rhinovirus which may have precipitated adrenal crisis and HSS Given immunosuppressed on steroids and methotrexate however will empirically continue treatment with IV Zosyn pending blood culture results MRSA nasal swab to determine need to cover for MRSA empirically Lactate 4.0, hypotensive BP 61/34 on arrival to the ER 2L bolus NSS given in ER, Additional LR 1L bolus now (2) Acute kidney injury: Plan: Suspect pre-renal with hypotension and severe dehydration Russell catheter placed in the ER No obstructive cause seen on CT 2L bolus NSS given in ER, Additional LR 1L bolus now q4h BMP (3) Hyperosmolar hyperglycemic state (HHS): Plan: Early HHS (serum osm 304, glucose 583) although I suspect her fatigue, nausea, generalized weakness are better explained by adrenal insufficiency IV insulin drip overnight with aim 250-350 q4h BMP/pH/PO/Mg overnight (4) Adrenal insufficiency: Plan: Possible diagnosis given severity of hypotension and tapering prednisone use in setting of infection (entero/rhinovirus) Hydrocortisone 100mg IV now then 50mg IV q6h - suspect this can be rapidly weaned as BP allows over the next 24-48 hours (5) Hypomagnesemia: Plan: Mg 1.3 on admission, Mg sulfate 5g IV total ordered Continue to measure q4h with HHS protocol as above (6) Elevated LFTs: Plan: Suspect due to hypotension, continue to trend, no RUQ pain or liver CT findings of concern (7) Tracheobronchomalacia determined by bronchoscopy: Plan: CPAP HS (8) Sarcoidosis: Plan: Continue prednisone, hold methotrexate (9) Schizoaffective disorder: Plan: Continues on Invega as outpatient Plan VTE Prophylaxis - heparin 5000 units q8h Diet - NPO Disposition - admit to PCU Admission and Anticipated Discharge Date Admission Date: September 20, 2023 History of Present Illness Chief Complaint: Generalized weakness Nausea Primary Care Provider: Tao Butch Landin is a 38 year old female who presents to the ER with 2 weeks of generalized weakness. She has a significant history of sarcoidosis diagnosed in April and has been on prednisone since then on tapering doses - currently down to 5mg PO daily. She has also been starting on methotrexate for this. She reports generalized weakness with nausea and vomiting progressively worse over the last 2 weeks and now unable to move much in her house. No fever, chills, headache, urinary, respiratory or other gastrointestinal symptoms. Just generalized myalgias bilaterally with associated weakness. Allergies Allergy/AdvReac Type Severity Reaction Status Date / Time morphine AdvReac Unknown SEVERE Verified 09/21/23 15:44 MIGRANES & VOMITING escitalopram [From Lexapro] AdvReac severe Verified 09/21/23 15:44 migraine and vomiting Home Medications Medication Instructions Recorded Confirmed Type adalimumab 40 mg/0.4 mL 40 mg subcut .EVERY 2 WEEKS 05/08/23 09/21/23 History subcutaneous pen kit (Humira(CF) Pen) buprenorphine 100 mg/0.5 mL 100 mg subcut MONTHLY 05/08/23 09/21/23 History solution,exten.rel.subcutaneous syringe (Sublocade) bupropion HCl 75 mg tablet 75 mg PO .Q NOON 05/08/23 09/21/23 History cholecalciferol (vitamin D3) 50 4,000 unit PO QAM 05/08/23 09/21/23 History mcg (2,000 unit) capsule famotidine 40 mg tablet 40 mg PO QAM 05/08/23 09/21/23 History fluoxetine 20 mg capsule 20 mg PO QAM 05/08/23 09/21/23 History gabapentin 600 mg tablet 600 mg PO TID 05/08/23 09/21/23 History hydroxyzine HCl 50 mg tablet See Rx Instructions .Route .COMPLEX 05/08/23 09/21/23 History lactulose 10 gram/15 mL oral 30 ml PO Q OTHER DAY PRN .. 05/08/23 09/21/23 History solution montelukast 10 mg tablet 10 mg PO HS 05/08/23 09/21/23 History paliperidone palmitate 234 mg/1.5 234 mg IM MONTHLY 05/08/23 09/21/23 History mL intramuscular syringe (Invega Sustenna) rizatriptan 10 mg tablet 10 mg PO UD 05/08/23 09/21/23 History CPAP Machine 1 ea .Route ONCE #1 ea 07/25/23 09/21/23 Rx folic acid 1 mg tablet 1 mg PO DAILY #30 tabs 07/30/23 09/21/23 Rx methotrexate sodium 2.5 mg tablet 10 mg (4 x 2.5 mg) PO .weekly #16 08/06/23 09/21/23 Rx tabs prednisone 5 mg tablet 5 mg PO DAILY 4 weeks #28 tabs 09/06/23 09/21/23 Rx aripiprazole 20 mg tablet 20 mg PO DAILY 09/21/23 09/21/23 History bupropion HCl 300 mg 24 hr tablet, 300 mg PO QAM 09/21/23 09/21/23 History extended release Past Med/Surg History Medical History Schizoaffective disorder DREW (obstructive sleep apnea) COPD (chronic obstructive pulmonary disease) Sarcoidosis SOB (shortness of breath) Vitamin D deficiency Acute kidney injury Hypercalcemia Renal impairment Encounter for pre-operative examination Cellulitis Pedal edema Hilar adenopathy Bipolar disorder Hypothyroidism Social History Smoking Status: Never smoker Tobacco Type: Cigarettes and E-cigarettes / Vaping Cigarettes Per Day: smoked for years but quit, vaped for years but quit 2-3 years ago; Second Hand Exposure: No; Do You Dip or Chew Tobacco: No; Tobacco Cessation Education Requested by Patient: No Hx Alcohol Use: No Hx Substance Use: No Preferred Language: BioNovaonese [place] Communication Ability: Effective Manager Employment Required: No Beliefs That Will Affect Care: None Current Living Situation: Alone and Family Current Living Situation Comment: lives with 3 kids age 12-20 Other Information That Helps Us Care for You: No Feels Safe at Home: Yes Safety Concerns: Feels Safe At This Time Assistive Devices: None Review of Systems Review of Systems: All systems reviewed & are unremarkable except as noted in HPI & below Physical Exam Constitutional: well developed; + not well nourished and no acute distress ENMT: Mouth: + dry oral mucous membranes Respiratory: normal respiratory effort, lungs clear to auscultation Cardiovascular: Rate/Rhythm: regular rate and regular rhythm Extremities: + pedal edema (trace) Gastrointestinal (Abdomen): normal bowel sounds, soft, nontender, no hepatosplenomegaly Musculoskeletal: no cyanosis or clubbing, extremities motor strength 5/5 Skin: no rashes, warm and dry Neurologic: moves all extremities and awake; no focal motor deficits and not confused Psychiatric: A+Ox3, euthymic affect Results & Data Results & Data Vital Signs (Past 12 Hours) Vital Signs Temp Pulse Pulse Resp BP BP Pulse Ox 09/21/23 14:15 104 H 20 94/53 L 95 09/21/23 14:00 103 H 18 92/49 L 95 09/21/23 13:33 114 H 18 95 09/21/23 13:31 98 H 18 92/41 L 98 09/21/23 13:16 114 H 09/21/23 12:58 36.3 C L 131 H 18 61/34 L 95 O2 Del Method O2 Flow Rate 09/21/23 14:15 Nasal Cannula 3 09/21/23 14:00 Nasal Cannula 3 09/21/23 13:33 Room Air 09/21/23 13:31 Nasal Cannula 3 09/21/23 13:16 09/21/23 12:58 Room Air Laboratory Results Abnormal lab results 09/21/23 09/21/23 09/21/23 Range/Units 13:18 13:20 13:30 MCH 24.7 L (25.0-34.0) pg MCHC 30.7 L (32.0-36.0) g/dL Neut # (Auto) 8.75 H (1.40-6.50) K/uL Lymph # (Auto) 1.08 L (1.20-3.40) K/uL ABG pH (7.35-7.45) ABG pO2 (80-95) mmHg Sodium 132 L (136-145) mmol/L Chloride 93 L (98-107) mmol/L Anion Gap 15 H (3-11) Creatinine 2.86 H (0.6-1.2) mg/dl BUN/Creatinine Ratio 7.3 L (10-20) Glucose 583 H* (70-99(Fasting)) mg/dl Lactate 4.0 H* (0.4-2.0) mmol/L Magnesium 1.3 L (1.7-2.4) mg/dl Total Bilirubin 1.8 H (0.2-1.0) mg/dl Direct Bilirubin 1.0 H (0-0.2) mg/dl AST 88 H (13-39) U/L ALT 74 H (7-52) U/L Alkaline Phosphatase 132 H (34-104) U/L Troponin I High Sens 27.5 H (0-14) pg/ml Procalcitonin 22.80 H (0-0.5) ng/ml Urine Protein 1+ H (Negative) Urine Glucose (UA) 3+ H (Negative) Urine Ketones Trace H (Negative) Ur Leukocyte Esterase Trace H (Negative) Urine WBC (Auto) 6-10 H (0-5) /hpf Entero/Rhino (PCR) DETECTED A (NotDetected) 09/21/23 Range/Units 14:17 MCH (25.0-34.0) pg MCHC (32.0-36.0) g/dL Neut # (Auto) (1.40-6.50) K/uL Lymph # (Auto) (1.20-3.40) K/uL ABG pH 7.29 L (7.35-7.45) ABG pO2 61 L (80-95) mmHg Sodium (136-145) mmol/L Chloride (98-107) mmol/L Anion Gap (3-11) Creatinine (0.6-1.2) mg/dl BUN/Creatinine Ratio (10-20) Glucose (70-99(Fasting)) mg/dl Lactate (0.4-2.0) mmol/L Magnesium (1.7-2.4) mg/dl Total Bilirubin (0.2-1.0) mg/dl Direct Bilirubin (0-0.2) mg/dl AST (13-39) U/L ALT (7-52) U/L Alkaline Phosphatase (34-104) U/L Troponin I High Sens (0-14) pg/ml Procalcitonin (0-0.5) ng/ml Urine Protein (Negative) Urine Glucose (UA) (Negative) Urine Ketones (Negative) Ur Leukocyte Esterase (Negative) Urine WBC (Auto) (0-5) /hpf Entero/Rhino (PCR) (NotDetected) Diagnostic Findings SINGLE VIEW CHEST CLINICAL HISTORY: Sepsis. FINDINGS: An AP, portable, upright chest radiograph is compared to study dated 05/09/2023 and correlated with chest CT dated 06/19/2023. The heart is enlarged. The pulmonary vasculature is noncongested. Chronic interstitial thickening is similar to previous. Scarring/atelectasis is noted at the lung bases. No airspace consolidation or large pleural effusion is identified. No pneumothorax is seen. There are chronic/healed right-sided rib fractures. IMPRESSION: Cardiomegaly with no acute cardiopulmonary abnormality identified. Medications Administered ER Medications Given: Normal saline 1L bolus Cefepime 2g IV Ondansetron 4mg IV Normal saline 1L bolus Insulin 10 units IV ECG Rate (beats per minute): 78 Rhythm: normal sinus Findings: + nonspecific-ST abn Comparison ECG Date: no prior available Code Status & VTE Plan Code Status Full Critical Care Time Critical Care Time: Yes Total Critical Care Time: 35 PG Care Time/CCT Total # of Minutes Spent Total Time Spent with Patient: Total time spent is greater than 50% in coordination of care (as documented) at patient's floor/unit and/or counseling patient: Critical Care Time: Yes Total Critical Care Time: 35 Coding Level of Care Code 20084 INT INP/OBS CARE 3/75MIN Diagnoses Sepsis A41.9 Acute kidney injury N17.9 Hyperosmolar hyperglycemic state (HHS) E11.00 Adrenal insufficiency E27.40 Hypomagnesemia E83.42 Elevated LFTs R79.89 Tracheobronchomalacia determined by bronchoscopy J39.8 Sarcoidosis D86.9 Schizoaffective disorder F25.9 Additional Codes Critical Care Time - Critical Care Time: Yes ([id number])
--- NOTE | 2023-09-21 15:13 | CT Scan Report ---
CT head/brain wo con CLINICAL HISTORY: 38 years-old Female with confused. Acutely altered mental status TECHNIQUE: Multiple axial CT images of the head were obtained without contrast. A dose lowering tech nique was utilized adhering to the principles of ALARA. COMPARISON: None. FINDINGS: No acute intracranial hemorrhage, midline shift, intracranial mass, hydrocephalus, territorial ischem ia or abnormal extra-axial collection. The calvarium is intact. Minimal mucosal thickening of the paranasal sinuses. Mastoid air cells are clear. Unremarkable soft tissues and orbits. IMPRESSION: No acute intracranial abnormality. ACT 112: Negative or not required by law. The above report was generated using voice recognition software. It may contain grammatical, syntax o r spelling errors. Electronically signed by: Rafal Rao M.D. 09/21/2023 3:12 PM
[2023-09-21] MEDS: LACTATED RINGER'S 1,000 ML IV ONE (15:14)
[2023-09-21] MEDS ORDERED: STAT IV Infusion **Titration per Protocol STA (15:31)
[2023-09-21] MEDS ORDERED: HHS GOAL RANGE 250-350 mg/dl ONE (15:31)
[2023-09-21] MEDS ORDERED: PHARMACY GLYCEMIC MGMT CONSULT PRN (15:31)
[2023-09-21] MEDS: INSULIN REGULAR 250 UNITS in SODIUM CHLORIDE 0.9% 247.5 ML IV SCH (16:43)
[2023-09-21] MEDS: NovoLIN-R BOLUS FROM BAG IV ONE (16:44)
[2023-09-21] MEDS: SODIUM CHLOR 0.45% + 20MEQ KCL 20 MEQ/1,000 ML BAG IV SCH (16:46)
[2023-09-21] MEDS: INSULIN ASPART PER UNIT CHARGE SC SCH (19:16)
[2023-09-21] MEDS: HYDROCORTISONE SOD 50 MG in SYRINGE 0 ML IV SCH (19:52)
[2023-09-21] MEDS: PIPERACILLIN/TAZOBACTAM 4.5 GM in DEXTROSE 5% MINI-B 100 ML IV ONE (19:52)
[2023-09-21] MEDS ORDERED: HYDROCORTISONE SOD SUCCINATE 100 MG/2 ML VIAL IV SCH (21:00)
[2023-09-21] MEDS ORDERED: HYDROCORTISONE SOD 100 MG in SYRINGE 0 ML IV SCH (21:00)
[2023-09-21] MEDS: hydrOXYzine HCl 25 MG TAB PO SCH (21:06)
[2023-09-21] MEDS: MONTELUKAST SODIUM 10 MG TABLET PO SCH (21:06)
[2023-09-21] MEDS: GABAPENTIN 600 MG TAB PO SCH (21:06)
[2023-09-21 21:46] LABS: BUN Creatinine Ratio 9.3 (10-20); Calcium 9.2 mg/dl (8.6-10.3); Creatinine Clr Calc Pharmacy 41.2 ml/min; Est GFR (African American) 30.7 ml/min; Est GFR (Non-African American) 26.5 ml/min; Magnesium 2.3 mg/dl (1.7-2.4); Phosphorus 1.3 mg/dl (2.5-4.9); Potassium 4.5 mmol/L (3.5-5.1)
[2023-09-21] MEDS ORDERED: POTASSIUM PHOS 3 MMOL/1 ML INFUSION IV STA (21:54)
[2023-09-21] MEDS: POTASSIUM PHOSPHATE 15 MMOL in SODIUM CHLORIDE 0.9% 250 ML IV ONE (22:55)
[2023-09-22] MEDS: PIPERACILLIN/TAZOBACTAM 4.5 GM in DEXTROSE 5% MINI-B 100 ML IV SCH (00:17)
[2023-09-22 01:36] LABS: BUN Creatinine Ratio 9.2 (10-20); Calcium 9.2 mg/dl (8.6-10.3); Est GFR (African American) 32.2 ml/min; Est GFR (Non-African American) 27.8 ml/min; Magnesium 2.9 mg/dl (1.7-2.4); Phosphorus 2.4 mg/dl (2.5-4.9)
[2023-09-22] MEDS: POTASSIUM CHLORIDE 40 MEQ in D5W AND 1/2NSS 1,000 ML IV SCH (01:48)
[2023-09-22] MEDS: HYDROmorphone INJ 0.5 MG/0.5 ML SYR IV STA (03:09)
[2023-09-22 07:08] LABS: Albumin Globulin Ratio 1.4 (0.9-2); Albumin Level 3.8 gm/dl (3.4-5.0); BUN Creatinine Ratio 10.4 (10-20); Bilirubin,Total 1.2 mg/dl (0.2-1.0); Calcium 9.1 mg/dl (8.6-10.3); Creatinine Clr Calc Pharmacy 52.6 ml/min; Est GFR (African American) 39.8 ml/min; Est GFR (Non-African American) 34.4 ml/min; Globulin 2.7 gm/dl (2.5-4.0); Magnesium 2.7 mg/dl (1.7-2.4); Phosphorus 1.6 mg/dl (2.5-4.9); Potassium 4.2 mmol/L (3.5-5.1); Total Protein 6.5 gm/dl (6.0-8.3)
[2023-09-22] MEDS: HEPARIN SOD 5,000 UNIT/0.5 ML VIAL SQ SCH (08:35)
[2023-09-22] MEDS: FLUoxetine HCL 20 MG CAP PO SCH (08:38)
[2023-09-22] MEDS: buPROPion XL 300 MG TABCR PO SCH (08:38)
[2023-09-22] MEDS: CHOLECALCIFEROL 25 MCG (1000 UNITS) TAB PO SCH (08:38)
[2023-09-22] MEDS: hydrOXYzine HCl 25 MG TAB PO SCH (08:38)
[2023-09-22] MEDS: ARIPiprazole 10 MG TAB PO SCH (08:38)
[2023-09-22] MEDS: FOLIC ACID 1 MG TAB PO SCH (08:39)
[2023-09-22] MEDS: FAMOTIDINE 40 MG TABLET PO SCH (08:39)
[2023-09-22] MEDS: predniSONE 5 MG TAB PO SCH (08:39)
[2023-09-22 10:37] LABS: Estimated Average Glucose 249 mg/dl; Hemoglobin A1C 10.3 % (4.5-5.6)
[2023-09-22 10:49] LABS: BUN Creatinine Ratio 10.2 (10-20); Calcium 9.3 mg/dl (8.6-10.3); Creatinine Clr Calc Pharmacy 54.4 ml/min; Est GFR (African American) 41.5 ml/min; Est GFR (Non-African American) 35.8 ml/min; Magnesium 2.6 mg/dl (1.7-2.4); Phosphorus 2.6 mg/dl (2.5-4.9); Potassium 4.1 mmol/L (3.5-5.1)
[2023-09-22] MEDS: buPROPion HCl 75 MG TABLET PO SCH (13:22)
[2023-09-22] MEDS: RIZATRIPTAN BENZOATE 10 MG TAB PO PRN (13:22)
[2023-09-22] MEDS: ONDANSETRON INJ 2 MG/ML 2 ML VIAL IV PRN (13:25)
[2023-09-22] MEDS: LANTUS PER UNIT CHARGE SC ONE (14:21)
[2023-09-22] MEDS: SODIUM CHLORIDE 0.9% 1,000 ML IV SCH (14:27)
[2023-09-22] MEDS ORDERED: GLUCOSE 10 TAB/TUBE PO PRN (15:30)
[2023-09-22] MEDS ORDERED: GLUCOSE 40% GEL 15 GM TUBE PO PRN (15:30)
[2023-09-22] MEDS ORDERED: DEXTROSE 50% 50 ML SYRINGE IV PRN (15:30)
[2023-09-22] MEDS ORDERED: GLUCAGON FOR INJ 1 MG VIAL IM PRN (15:30)
[2023-09-22] MEDS ORDERED: CARBOHYDRATES FOR HYPOGLYCEMIA PO PRN (15:30)
--- NOTE | 2023-09-22 20:41 | Hospitalist Progress Note ---
Date of Service September 22, 2023 Assessment & Plan (1) Sepsis: Plan: Only source found - rhinovirus which may have precipitated adrenal crisis and HSS Given immunosuppressed on steroids and methotrexate however will empirically continue treatment with IV Zosyn pending blood culture results MRSA nasal swab to determine need to cover for MRSA empirically Lactate 4.0, hypotensive BP 61/34 on arrival to the ER vitals are stable (2) Acute kidney injury: Plan: Suspect pre-renal with hypotension and severe dehydration Russell catheter placed in the ER No obstructive cause seen on CT 2L bolus NSS given in ER, Additional LR 1L bolus now q4h BMP (3) Hyperosmolar hyperglycemic state (HHS): Plan: Early HHS (serum osm 304, glucose 583) although I suspect her fatigue, nausea, generalized weakness are better explained by adrenal insufficiency IV insulin drip overnight with aim 250-350 q4h BMP/pH/PO/Mg overnight (4) Adrenal insufficiency: Plan: Possible diagnosis given severity of hypotension and tapering prednisone use in setting of infection (entero/rhinovirus) Hydrocortisone 100mg IV now then 50mg IV q6h - suspect this can be rapidly weaned as BP allows over the next 24-48 hours vitals are stable will wean on 5/5 (5) Hypomagnesemia: Plan: Mg 1.3 on admission, Mg sulfate 5g IV total ordered Continue to measure q4h with HHS protocol as above (6) Elevated LFTs: Plan: Suspect due to hypotension, continue to trend, no RUQ pain or liver CT findings of concern (7) Tracheobronchomalacia determined by bronchoscopy: Plan: CPAP HS (8) Sarcoidosis: Plan: Continue prednisone, hold methotrexate (9) Schizoaffective disorder: Plan: Continues on Invega as outpatient Plan VTE Prophylaxis - heparin 5000 units q8h Disposition - admit to PCU Admission and Anticipated Discharge Date Admission Date: September 21, 2023 Subjective Patient reports no new symptoms. Patient still feels weak, but refers feeling better than yesterday. Review of Systems Review of Systems: All systems reviewed & are unremarkable except as noted in HPI & below Physical Exam Constitutional: well developed; + not well nourished and no acute distress Respiratory: normal respiratory effort, lungs clear to auscultation Cardiovascular: Rate/Rhythm: regular rate and regular rhythm Extremities: + pedal edema (trace) Gastrointestinal (Abdomen): normal bowel sounds, soft, nontender, no hepatosplenomegaly Musculoskeletal: no cyanosis or clubbing, extremities motor strength 5/5 Skin: no rashes, warm and dry Neurologic: moves all extremities and awake; no focal motor deficits and not confused Psychiatric: A+Ox3, euthymic affect Results & Data Results & Data Vital Signs (Past 12 Hours) Vital Signs Temp Pulse Resp BP Pulse Ox O2 Del Method O2 Flow Rate 09/22/23 19:00 36.5 C 76 21 128/81 96 Nasal Cannula 09/22/23 14:55 36.4 C L 69 21 128/75 93 Nasal Cannula 09/22/23 14:51 Nasal Cannula 2 09/22/23 11:55 36.2 C L 70 19 132/76 95 Nasal Cannula 09/22/23 11:55 Nasal Cannula 4 PG Care Time/CCT Total # of Minutes Spent Total Time Spent with Patient: Total time spent is greater than 50% in coordination of care (as documented) at patient's floor/unit and/or counseling patient: Coding Level of Care Code 57893 SUB INP/OBS CARE 2/35MIN Diagnoses Sepsis A41.9 Acute kidney injury N17.9 Hyperosmolar hyperglycemic state (HHS) E11.00 Adrenal insufficiency E27.40 Hypomagnesemia E83.42 Elevated LFTs R79.89 Tracheobronchomalacia determined by bronchoscopy J39.8 Sarcoidosis D86.9 Schizoaffective disorder F25.9
[2023-09-23] MEDS: HYDROmorphone INJ 0.5 MG/0.5 ML SYR IV STA (02:57)
[2023-09-23] MEDS: LANTUS PER UNIT CHARGE SC SCH (09:03)
[2023-09-23] MEDS: HYDROCORTISONE SOD 25 MG in SYRINGE 0 ML IV SCH (14:25)
[2023-09-23] MEDS: PENDING D5 1/2NS+40mEq KCL IVF SCH (14:45)
[2023-09-23] MEDS: ACETAMINOPHEN 325 MG TAB PO PRN (16:53)
[2023-09-23] MEDS ORDERED: LANTUS PER UNIT CHARGE SC ONE (18:00)
[2023-09-23] MEDS: INSULIN ASPART PER UNIT CHARGE SC SCH ×2 (21:20→23:53)
[2023-09-23] MEDS: LANTUS PER UNIT CHARGE SC ONE (21:20)
[2023-09-23] MEDS: [UNRECOGNIZED DRUG - REMARK] ONE (21:20)
--- NOTE | 2023-09-23 21:52 | Electrocardiogram Report ---
Test Reason : Blood Pressure : / mmHG Vent. Rate : 112 BPM Atrial Rate : 112 BPM P-R Int : 142 ms QRS Dur : 068 ms QT Int : 352 ms P-R-T Axes : -26 011 011 degrees QTc Int : 480 ms Sinus tachycardia Cannot rule out Anterior infarct , age undetermined Abnormal ECG When compared with ECG of 08-MAY-2023 11:41, HR has increased Confirmed by Renato Perez ([id number]) on 09/23/2023 9:52:07 PM Referred By: REFERRED SELF Confirmed By:Renato Perez
--- NOTE | 2023-09-23 22:22 | Hospitalist Progress Note ---
Date of Service September 23, 2023 Assessment & Plan (1) Sepsis: Plan: Only source found - rhinovirus which may have precipitated adrenal crisis and HSS Given immunosuppressed on steroids and methotrexate however will empirically continue treatment with IV Zosyn pending blood culture results MRSA nasal swab to determine need to cover for MRSA empirically Lactate 4.0, hypotensive BP 61/34 on arrival to the ER vitals are stable, titrating down his corticosteroids. (2) Acute kidney injury: Plan: Suspect pre-renal with hypotension and severe dehydration Russell catheter placed in the ER No obstructive cause seen on CT JESSICA is improving. (3) Hyperosmolar hyperglycemic state (HHS): Plan: Early HHS (serum osm 304, glucose 583) although I suspect her fatigue, nausea, generalized weakness are better explained by adrenal insufficiency IV insulin drip overnight with aim 250-350 q4h BMP/pH/PO/Mg overnight (4) Adrenal insufficiency: Plan: Possible diagnosis given severity of hypotension and tapering prednisone use in setting of infection (entero/rhinovirus) Hydrocortisone 100mg IV now then 50mg IV q6h - suspect this can be rapidly weaned as BP allows over the next 24-48 hours vitals are stable wean on 09/22 (5) Hypomagnesemia: Plan: Mg 1.3 on admission, Mg sulfate 5g IV total ordered Continue to measure q4h with HHS protocol as above (6) Elevated LFTs: Plan: Suspect due to hypotension, continue to trend, no RUQ pain or liver CT findings of concern (7) Tracheobronchomalacia determined by bronchoscopy: Plan: CPAP HS (8) Sarcoidosis: Plan: Continue prednisone, hold methotrexate (9) Schizoaffective disorder: Plan: Continues on Invega as outpatient Plan VTE Prophylaxis - heparin 5000 units q8h Disposition - admit to PCU Admission and Anticipated Discharge Date Admission Date: September 21, 2023 Subjective Patient reports feeling slightly stronger today. Review of Systems Review of Systems: All systems reviewed & are unremarkable except as noted in HPI & below Physical Exam Constitutional: well developed; + not well nourished and no acute distress Respiratory: normal respiratory effort, lungs clear to auscultation Cardiovascular: Rate/Rhythm: regular rate and regular rhythm Extremities: + pedal edema (trace) Gastrointestinal (Abdomen): normal bowel sounds, soft, nontender, no hepatosplenomegaly Musculoskeletal: no cyanosis or clubbing, extremities motor strength 5/5 Skin: no rashes, warm and dry Neurologic: moves all extremities and awake; no focal motor deficits and not confused Psychiatric: A+Ox3, euthymic affect Results & Data Results & Data Vital Signs (Past 12 Hours) Vital Signs Temp Pulse Resp BP Pulse Ox O2 Del Method 09/23/23 19:04 36.7 C 64 16 137/84 92 Nasal Cannula 09/23/23 15:04 36.5 C 65 20 157/85 H 95 Nasal Cannula 09/23/23 11:51 37.0 C 76 22 137/82 92 Nasal Cannula PG Care Time/CCT Total # of Minutes Spent Total Time Spent with Patient: Total time spent is greater than 50% in coordination of care (as documented) at patient's floor/unit and/or counseling patient: Coding Level of Care Code 98741 SUB INP/OBS CARE 2/35MIN Diagnoses Sepsis A41.9 Acute kidney injury N17.9 Hyperosmolar hyperglycemic state (HHS) E11.00 Adrenal insufficiency E27.40 Hypomagnesemia E83.42 Elevated LFTs R79.89 Tracheobronchomalacia determined by bronchoscopy J39.8 Sarcoidosis D86.9 Schizoaffective disorder F25.9
[2023-09-24 08:23] LABS: BUN Creatinine Ratio 14.4 (10-20); Calcium 7.8 mg/dl (8.6-10.3); Creatinine Clr Calc Pharmacy 82.3 ml/min; Est GFR (African American) 67.3 ml/min; Est GFR (Non-African American) 58.1 ml/min; Magnesium 2.1 mg/dl (1.7-2.4); Phosphorus 2.6 mg/dl (2.5-4.9); Potassium 3.9 mmol/L (3.5-5.1)
--- NOTE | 2023-09-24 12:18 | Pharmacy Report ---
Pharmacy Glycemic Short Note 2 - Date of Service September 24, 2023 - Glycemic Short BSG Results (Last 24 hours): 09/23/23 09/23/23 09/23/23 13:58 16:04 17:44 Glucose POC Glucose 179 H 145 H 133 H 09/23/23 09/23/23 09/24/23 20:09 23:47 04:01 Glucose POC Glucose 119 H 150 H 157 H 09/24/23 09/24/23 07:12 11:24 Glucose 160 H POC Glucose 147 H 164 H OUTPATIENT ANTIDIABETIC REGIMEN: * none * HbA1c 10.3% (09/22/23) ASSESSMENT: * Greer is a 38 YOF admitted with generalized weakness and malaise found to be in HHS with potential adrenal insufficiency and no history of diabetes although her HbA1c is elevated and suggests glycemic dysfunction. Pharmacy has been consulted for glycemic management. * She was started on an insulin drip on admission as well as IV hydrocortisone. She continued on the drip until last night when she was transitioned off the drip successfully. She received 70 units of basal insulin, 29 units of bolus insulin, and 105 units from the insulin drip yesterday. * Insulin drip transition successful, fasting BSG this AM acceptable, will continue current basal regimen and allow for a 15% increase or decrease in basal insulin at bedtime based on BSG. * Novolog initiated at a weight based stress of 3, appears to be addressing her needs at this time. Continue. * Hydrocortisone discontinued this afternoon, will continue to monitor. PLAN FOR INPATIENT GLYCEMIC CONTROL: * Hold outpatient oral diabetes medications * Basal insulin * Lantus 40 units SQ QAM * Lantus 20-40 units SQ HS (see eMAR for additional details) * Bolus insulin * NovoLog per scale ACHS or Q6hrs while NPO * Goal Range: Low 110 mg/dL - High 140 mg/dL * Correction Factor: 15 mg/dL/unit * Nutritional / Prandial insulin per carb ratio of 1 unit per 5 grams CHO consumed
[2023-09-24] MEDS: POLYETHYLENE (MIRALAX) 17 GM PACK PO SCH (17:46)
[2023-09-24] MEDS: DOCUSATE SODIUM/SENNA 50/8.6MG TAB PO SCH (17:46)
[2023-09-24] MEDS: LANTUS PER UNIT CHARGE SC SCH (20:59)
--- NOTE | 2023-09-24 22:35 | Hospitalist Progress Note ---
Date of Service September 24, 2023 Assessment & Plan (1) Sepsis: Plan: Only source found - rhinovirus which may have precipitated adrenal crisis and HSS Given immunosuppressed on steroids and methotrexate however will empirically continue treatment with IV Zosyn pending blood culture results MRSA nasal swab to determine need to cover for MRSA empirically Lactate 4.0, hypotensive BP 61/34 on arrival to the ER vitals are stable, stopped decadron on 09/23 will momnitor blood pressure. Informed pharmacy so they can help titrate insulin. (2) Acute kidney injury: Plan: Suspect pre-renal with hypotension and severe dehydration Russell catheter placed in the ER No obstructive cause seen on CT JESSICA is improving. resolved. (3) Hyperosmolar hyperglycemic state (HHS): Plan: Early HHS (serum osm 304, glucose 583) although I suspect her fatigue, nausea, generalized weakness are better explained by adrenal insufficiency IV insulin drip overnight with aim 250-350 q4h BMP/pH/PO/Mg overnight resolved (4) Adrenal insufficiency: Plan: Possible diagnosis given severity of hypotension and tapering prednisone use in setting of infection (entero/rhinovirus) Hydrocortisone 100mg IV now then 50mg IV q6h - suspect this can be rapidly weaned as BP allows over the next 24-48 hours vitals are stable wean on 09/22 (5) Hypomagnesemia: Plan: Mg 1.3 on admission, Mg sulfate 5g IV total ordered Continue to measure q4h with HHS protocol as above (6) Elevated LFTs: Plan: Suspect due to hypotension, continue to trend, no RUQ pain or liver CT findings of concern (7) Tracheobronchomalacia determined by bronchoscopy: Plan: CPAP HS (8) Sarcoidosis: Plan: Continue prednisone, hold methotrexate (9) Schizoaffective disorder: Plan: Continues on Invega as outpatient Plan VTE Prophylaxis - heparin 5000 units q8h Disposition - admit to PCU Admission and Anticipated Discharge Date Admission Date: September 21, 2023 Subjective Patient reports she is slightly stronger. Review of Systems Review of Systems: All systems reviewed & are unremarkable except as noted in HPI & below Physical Exam Constitutional: well developed; + not well nourished and no acute distress Respiratory: normal respiratory effort, lungs clear to auscultation Cardiovascular: Rate/Rhythm: regular rate and regular rhythm Extremities: + pedal edema (trace) Gastrointestinal (Abdomen): normal bowel sounds, soft, nontender, no hepatosplenomegaly Musculoskeletal: no cyanosis or clubbing, extremities motor strength 5/5 Skin: no rashes, warm and dry Neurologic: moves all extremities and awake; no focal motor deficits and not confused Psychiatric: A+Ox3, euthymic affect Results & Data Results & Data Vital Signs (Past 12 Hours) Vital Signs Temp Pulse Pulse Resp BP Pulse Ox O2 Del Method 09/24/23 19:46 36.8 C 62 20 148/87 H 95 Nasal Cannula 09/24/23 16:00 58 L 09/24/23 15:05 36.9 C 62 20 166/88 H 93 Nasal Cannula 09/24/23 11:17 36.7 C 57 L 22 173/104 H 94 Nasal Cannula O2 Flow Rate 09/24/23 19:46 1 09/24/23 16:00 09/24/23 15:05 09/24/23 11:17 PG Care Time/CCT Total # of Minutes Spent Total Time Spent with Patient: Total time spent is greater than 50% in coordination of care (as documented) at patient's floor/unit and/or counseling patient: Coding Level of Care Code 54429 SUB INP/OBS CARE 2/35MIN Diagnoses Sepsis A41.9 Acute kidney injury N17.9 Hyperosmolar hyperglycemic state (HHS) E11.00 Adrenal insufficiency E27.40 Hypomagnesemia E83.42 Elevated LFTs R79.89 Tracheobronchomalacia determined by bronchoscopy J39.8 Sarcoidosis D86.9 Schizoaffective disorder F25.9
[2023-09-25 07:13] LABS: BUN Creatinine Ratio 18.8 (10-20); Calcium 8.5 mg/dl (8.6-10.3); Est GFR (African American) 86.3 ml/min; Est GFR (Non-African American) 74.5 ml/min; Magnesium 1.9 mg/dl (1.7-2.4); Phosphorus 3.6 mg/dl (2.5-4.9); Potassium 3.6 mmol/L (3.5-5.1)
[2023-09-25] MEDS: LANTUS PER UNIT CHARGE SC SCH (08:48)
[2023-09-25] MEDS ORDERED: HYDROCORTISONE SOD 25 MG in SYRINGE 0 ML IV SCH (09:00)
--- NOTE | 2023-09-25 11:35 | Pharmacy Report ---
Pharmacy Glycemic Short Note 2 - Date of Service September 25, 2023 - Glycemic Short BSG Results (Last 24 hours): 09/24/23 09/24/23 09/24/23 11:24 16:16 20:09 Glucose POC Glucose 164 H 157 H 110 H 09/25/23 09/25/23 09/25/23 04:25 06:15 07:20 Glucose 100 H POC Glucose 83 101 H 09/25/23 11:02 Glucose POC Glucose 97 OUTPATIENT ANTIDIABETIC REGIMEN: * none * HbA1c 10.3% (09/22/23) ASSESSMENT: 09/24 * Blood sugars at goal, hydrocortisone discontinued, only on Prednisone 5mg PO daily for steroids. * Patient received 92 units of insulin yesterday, 70 basal, will reduce basal and loosen NovoLog parameters as IV steroids have been discontinued. * Notified CDE to meet with patient today if possible, as suggestive by A1c. 09/23 * Greer is a 38 YOF admitted with generalized weakness and malaise found to be in HHS with potential adrenal insufficiency and no history of diabetes although her HbA1c is elevated and suggests glycemic dysfunction. Pharmacy has been consulted for glycemic management. * She was started on an insulin drip on admission as well as IV hydrocortisone. She continued on the drip until last night when she was transitioned off the drip successfully. She received 70 units of basal insulin, 29 units of bolus insulin, and 105 units from the insulin drip yesterday. * Insulin drip transition successful, fasting BSG this AM acceptable, will continue current basal regimen and allow for a 15% increase or decrease in basal insulin at bedtime based on BSG. * Novolog initiated at a weight based stress of 3, appears to be addressing her needs at this time. Continue. * Hydrocortisone discontinued this afternoon, will continue to monitor. PLAN FOR INPATIENT GLYCEMIC CONTROL: * Basal insulin * Lantus 30 units SQ Daily * Lantus 15 units SQ HS for BSG > 180mg/dl * Bolus insulin * NovoLog per scale ACHS or Q6hrs while NPO * Goal Range: Low 110 mg/dL - High 140 mg/dL * Correction Factor: 25 mg/dL/unit * Nutritional / Prandial insulin per carb ratio of 1 unit per 8 grams CHO consumed
== END 2023-09-25 14:48 | disposition home or self-care (01) | DRG 872 ==
LOC: ED 12:55 → SUATTDRO 15:31 → EDINP 15:31 → 2S 17:35